=== PATIENT | male | born 1955 | race American Indian/Alaskan Native ===

== ENCOUNTER 2017-06-27 15:30 | Inpatient (IN) | payer MEDICARE ==
[2017-06-27] MEDS ORDERED: ATIVAN IV ONE (15:38)
[2017-06-27] MEDS ORDERED: KEPPRA 1,000 MG/NS 0.75% 100ML 1,000 MG/100 ML BAG IV ONE (15:38)
[2017-06-27 16:09] LABS: Basophils % (Auto) 1.3 % (0.0-1.8); Hematocrit 40.9 % (35.5-45.6); Mean Corpuscular HGB Conc 32 % (32-34); Mean Corpuscular Hemoglobin 28 pg (28-32); Mean Corpuscular Volume 89 fl (84-94); Red Cell Distribution Width 16.7 % (13.2-15.2); White Blood Count 7.5 K/mm3 (4.5-11.0)
[2017-06-27] MEDS ORDERED: CARDIZEM ONE (16:11)
[2017-06-27] MEDS ORDERED: CARDIZEM IV ONE (16:15)
[2017-06-27 16:16] LABS: Platelet Count 237 K/mm3 (140-440)
[2017-06-27] MEDS ORDERED: NACL 0.9% 1000 ML 1,000 ML IV ONE ×2 (16:16→17:24)
--- NOTE | 2017-06-27 16:19 | XRay Report ---
FINAL REPORT EXAM: XR CHEST 1V AP HISTORY: rhonchi s/p multiple seizures TECHNIQUE: AP portable view of the chest PRIORS: None. FINDINGS: Lines, tubes, and devices: N/A Lungs and pleura: Trachea is normal in position. Lungs are clear of infiltrate, pleural effusion, vascular congestion, or pneumothorax. Cardiomediastinal silhouette: Cardiac and mediastinal silhouettes are unremarkable. Other: Bony structures are intact. IMPRESSION: No acute cardiopulmonary process seen.
[2017-06-27 16:24] LABS: Anion Gap 30 mmol/L; BUN/Creatinine Ratio 13; Blood Urea Nitrogen 15 mg/dL (9-20); Carbon Dioxide 18 mmol/L (22-30); Chloride 95.1 mmol/L (98-107); Creatine Kinase 149 units/L (55-170); Glucose 159 mg/dL (75-100); Potassium 3.8 mmol/L (3.6-5.0); Sodium 139 mmol/L (137-145)
--- NOTE | 2017-06-27 17:05 | Cat Scan Report ---
FINAL REPORT EXAM: CT HEAD/BRAIN WO CON HISTORY: multiple seizures. History of CVA right side weakness TECHNIQUE: Standard unenhanced CT of the head at 5.0 millimeter axial increments PRIORS: None. FINDINGS: The ventricular system is normal in size and configuration. There is moderate cerebral atrophy. Low-density remote infarct and encephalomalacia in the left occipital lobe is seen with ballooning of the adjacent atrium and occipital horn of the left lateral ventricle. There is no evidence for mass lesion, mass effect, midline shift, acute intracranial hemorrhage, or acute ischemia/ infarction. Visualized paranasal sinuses demonstrates mucosal thickening in the inferior aspect of both maxillary sinuses and several bilateral ethmoid air cells. Opacification of much of the left mastoid air cells suggests mastoiditis. IMPRESSION: 1. No acute intracranial process noted. 2. Remote left occipital infarct with ballooning of the adjacent left occipital horn and atrium 3. Left mastoiditis. Mild chronic sinusitis of the maxillary and ethmoid air cells
--- NOTE | 2017-06-27 17:28 | Emergency Department Report ---
ED Seizure HPI - General Chief Complaint: Seizure Stated Complaint: SEIZURE Time Seen by Provider: 06/27/17 15:37 Source: patient, old records reviewed Mode of arrival: Stretcher Limitations: Altered Mental Status - History of Present Illness Initial Comments: 62-year-old male with a past medical history seizures, previous CVA with residual right-sided deficits, and hypertension presents to the hospital complains of multiple seizures prior to arrival. Patient had one seizure at home, one in route, and one upon arrival to the ED. EMS unable to obtain an IV in route. Patient received 4 mg of Ativan IM but continued to have a seizure upon arrival. IV placed upon arrival and additional Ativan 2 mg administered and 1 g of Keppra initiated. Patient is alone and without a family member at the bedside and pt unable to provide any history of present illness. History obtained from EMS and previous medical record. - Related Data Home Medications Medication Instructions Recorded Confirmed Last Taken Aspirin [Aspirin TAB] 325 mg PO QDAY 06/19/13 06/19/13 Unknown Carvedilol [Coreg] 12.5 mg PO DAILY 06/19/13 06/19/13 Unknown Clopidogrel [Plavix] 75 mg PO QDAY 06/19/13 06/19/13 Unknown Famotidine [Pepcid] 20 mg PO BID 06/19/13 06/19/13 Unknown Hydrochlorothiazide 12.5 mg PO DAILY 06/19/13 06/19/13 Unknown Isosorbide Mononitrate [Imdur] 120 mg PO QDAY 06/19/13 06/19/13 Unknown Lisinopril [Zestril TAB] 20 mg PO QDAY 06/19/13 06/19/13 Unknown Simvastatin [Zocor TAB] 20 mg PO QHS 06/19/13 06/19/13 Unknown Spironolactone 25 mg PO DAILY 06/19/13 06/19/13 Unknown Verapamil HCl [Calan Sr] 360 mg PO 06/19/13 06/19/13 Unknown amLODIPine [Norvasc] 10 mg PO DAILY 06/19/13 06/19/13 Unknown levETIRAcetam [Keppra TAB] 500 mg PO BID 06/19/13 06/19/13 Unknown Allergies Allergy/AdvReac Type Severity Reaction Status Date / Time No Known Allergies Allergy Unverified 06/19/13 17:40 ED Review of Systems ROS: Stated complaint: SEIZURE Other details as noted in HPI Comment: Unobtainable due to pts medical conditions ED Past Medical Hx - Past Medical History Hx Hypertension: Yes Hx CVA: Yes (right sided defecits) Hx Congestive Heart Failure: No Hx Diabetes: No Hx Seizures: Yes Hx Asthma: No Hx COPD: No - Social History Smoking Status: Unknown if ever smoked Substance Use Type: Methamphetamines - Medications Home Medications: Home Medications Medication Instructions Recorded Confirmed Last Taken Type Aspirin [Aspirin TAB] 325 mg PO QDAY 06/19/13 06/19/13 Unknown History Carvedilol [Coreg] 12.5 mg PO DAILY 06/19/13 06/19/13 Unknown History Clopidogrel [Plavix] 75 mg PO QDAY 06/19/13 06/19/13 Unknown History Famotidine [Pepcid] 20 mg PO BID 06/19/13 06/19/13 Unknown History Hydrochlorothiazide 12.5 mg PO DAILY 06/19/13 06/19/13 Unknown History Isosorbide Mononitrate [Imdur] 120 mg PO QDAY 06/19/13 06/19/13 Unknown History Lisinopril [Zestril TAB] 20 mg PO QDAY 06/19/13 06/19/13 Unknown History Simvastatin [Zocor TAB] 20 mg PO QHS 06/19/13 06/19/13 Unknown History Spironolactone 25 mg PO DAILY 06/19/13 06/19/13 Unknown History Verapamil HCl [Calan Sr] 360 mg PO 06/19/13 06/19/13 Unknown History amLODIPine [Norvasc] 10 mg PO DAILY 06/19/13 06/19/13 Unknown History levETIRAcetam [Keppra TAB] 500 mg PO BID 06/19/13 06/19/13 Unknown History ED Physical Exam - General Limitations: Altered Mental Status - Other Other exam information: General: Unresponsive Head exam: Atraumatic, normocephalic Eyes exam: Pupils equal and reactive to light ENT: Moist mucous membrane Neck exam: Normal inspection Respiratory exam: Bilateral rhonchi/sonorous respirations Cardiovascular: Tachycardic regular rhythm Abdomen: Soft, nondistended, and nontender, with normal bowel sounds, no rebound, or guarding : Enlarged scrotum with partially reducible left inguinal hernia Extremity: Full range of motion normal inspection no deformity Back: Normal Inspection, full range of motion, no tenderness Neurologic: Initially patient presented with generalized, tonic seizure upon arrival lasting about 1 minute. Patient post ictal afterwards with sonorous respirations. Psychiatric: Unresponsive Skin: Warm, dry, intact ED Course Vital Signs 06/27/17 06/27/17 06/27/17 15:42 15:49 16:00 Temperature 97.4 F L Pulse Rate 149 H 147 H Respiratory 24 24 16 Rate Blood Pressure 163/121 155/106 O2 Sat by Pulse 100 98 Oximetry 06/27/17 06/27/17 06/27/17 16:10 16:15 16:30 Temperature Pulse Rate 144 H 135 H 134 H Respiratory 15 19 Rate Blood Pressure 157/113 141/100 163/112 O2 Sat by Pulse 98 97 Oximetry 06/27/17 06/27/17 06/27/17 16:50 17:00 17:30 Temperature Pulse Rate 116 H 121 H 101 H Respiratory 14 14 13 Rate Blood Pressure 162/110 173/109 152/102 O2 Sat by Pulse 98 100 100 Oximetry 06/27/17 18:00 Temperature Pulse Rate 102 H Respiratory 12 Rate Blood Pressure 150/103 O2 Sat by Pulse 100 Oximetry - Reevaluation(s) Reevaluation #1: 06/27/17 17:27 Initial EKG showed a narrow complex tachycardia rate 148 to 150s on a monitor. Differential includes a flutter with 21 block versus sinus tach. Cardizem 10 mg given with improvement in heart rate to 130s. EKG reviewed by cardiology and agrees that it is likely sinus tach. 1 L normal saline ordered. Now heart rate is 107 and is clearly sinus tach on a monitor. Reevaluation #2: 06/27/17 19:25 In the ED nurse attempted to pass Stubbs catheter. Only gross blood was obtained. There appeared to be a clot in the tubing and therefore Stubbs catheter removed. Patient at here have some mild bleeding from the penis with urine output as well. Bleeding stopped. We attempted fully associated with 3 with a 16 [place] catheter in preparation for MRSA strip. I was able to pass a catheter however, karthikeyan blood obtained now is unsure of Stubbs catheter positioned therefore catheter removed. Nurse instructed to place Blencoe catheter and patient may need inpatient urology evaluation Reevaluation #3: 06/27/17 19:48 Patient does have spontaneous movement of all extremities and appears to be stronger on the left. Patient does localize pain. - Consultations Consultation #1: 06/27/17 16:[address] 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 Was able to review EKG pre-and post Cardizem and agrees that second EKG appears to be sinus tachycardia. Recommends Lopressor for blood pressure heart rate control is needed. ED Medical Decision Making - Lab Data Result diagrams: 06/27/17 15:52 06/27/17 15:52 Lab Results 06/27/17 06/27/17 06/27/17 Range/Units 15:44 15:52 15:52 WBC 7.5 (4.5-11.0) K/mm3 RBC 4.60 (3.65-5.03) M/mm3 Hgb 13.0 (11.8-15.2) gm/dl Hct 40.9 (35.5-45.6) % MCV 89 (84-94) fl MCH 28 (28-32) pg MCHC 32 (32-34) % RDW 16.7 H (13.2-15.2) % Plt Count 237 (140-440) K/mm3 Lymph % (Auto) 39.0 H (13.4-35.0) % [place] % (Auto) 9.1 H (0.0-7.3) % Eos % (Auto) 2.0 (0.0-4.3) % Baso % (Auto) 1.3 (0.0-1.8) % Lymph # 2.9 (1.2-5.4) K/mm3 [place] # 0.7 (0.0-0.8) K/mm3 Eos # 0.1 (0.0-0.4) K/mm3 Baso # 0.1 (0.0-0.1) K/mm3 Seg Neutrophils % 48.6 (40.0-70.0) % Seg Neutrophils # 3.6 (1.8-7.7) K/mm3 VBG pH (7.320-7.420) Sodium 139 (137-145) mmol/L Potassium 3.8 (3.6-5.0) mmol/L Chloride 95.1 L (98-107) mmol/L Carbon Dioxide 18 L (22-30) mmol/L Anion Gap 30 mmol/L BUN 15 (9-20) mg/dL Creatinine 1.2 (0.8-1.5) mg/dL Estimated GFR > 60 ml/min BUN/Creatinine Ratio 13 % Glucose 159 H (75-100) mg/dL POC Glucose 179 H (70-105) Lactic Acid (0.7-2.0) mmol/L Calcium 9.0 (8.4-10.2) mg/dL Magnesium 2.20 (1.7-2.3) mg/dL Total Creatine Kinase 149 (55-170) units/L Plasma/Serum Alcohol (0-0.07) gm% 06/27/17 06/27/17 06/27/17 Range/Units 15:52 15:52 16:30 WBC (4.5-11.0) K/mm3 RBC (3.65-5.03) M/mm3 Hgb (11.8-15.2) gm/dl Hct (35.5-45.6) % MCV (84-94) fl MCH (28-32) pg MCHC (32-34) % RDW (13.2-15.2) % Plt Count (140-440) K/mm3 Lymph % (Auto) (13.4-35.0) % [place] % (Auto) (0.0-7.3) % Eos % (Auto) (0.0-4.3) % Baso % (Auto) (0.0-1.8) % Lymph # (1.2-5.4) K/mm3 [place] # (0.0-0.8) K/mm3 Eos # (0.0-0.4) K/mm3 Baso # (0.0-0.1) K/mm3 Seg Neutrophils % (40.0-70.0) % Seg Neutrophils # (1.8-7.7) K/mm3 VBG pH 7.103 L* (7.320-7.420) Sodium (137-145) mmol/L Potassium (3.6-5.0) mmol/L Chloride (98-107) mmol/L Carbon Dioxide (22-30) mmol/L Anion Gap mmol/L BUN (9-20) mg/dL Creatinine (0.8-1.5) mg/dL Estimated GFR ml/min BUN/Creatinine Ratio % Glucose (75-100) mg/dL POC Glucose (70-105) Lactic Acid 12.60 H* (0.7-2.0) mmol/L Calcium (8.4-10.2) mg/dL Magnesium (1.7-2.3) mg/dL Total Creatine Kinase (55-170) units/L Plasma/Serum Alcohol < 0.01 (0-0.07) gm% - EKG Data -: EKG Interpreted by Me (possible anterior infarct) EKG shows normal: sinus rhythm, axis (75), QRS complexes (104), ST-T waves (lvh , lat t inv, inf t wave) Rate: tachycardia (148) - EKG Data When compared to previous EKG there are: no significant change (compared to previous) 06/27/17 19:42 Repeat EKG after Cardizem 10 mg sinus tach 134, inferior lateral T-wave inversions, possible anterior infarct - Radiology Data Radiology results: report reviewed Read by radiologist called CT head: No acute process. Remotely possible infarct with ballooning of the adjacent left occipital horn and atrium. Left mastoiditis. Mild chronic sinusitis of the maxillary and ethmoid sinus cells Chest x-ray: No acute process - Medical Decision Making Patient remains post ictal after several hours in the ED although does localize to pain. Patient occurs admission for further treatment since alteration in mental status persist. Patient received Ativan, Keppra, and IV fluids in the ED. Urology consultation and may be beneficial for hematuria status post Stubbs attempts. Patient has a large left inguinal hernia that appeared to be at least partially reducible upon arrival. Lactic acidosis is likely secondary to multiple seizures and shows improvement and lactic acid and venous pH with repeat blood draw. Sepsis is not suspected. - Differential Diagnosis hypertensive emergency, ICH, mass, seizures, stroke, electrolyte anl, aflut Critical Care Time: No Critical care attestation.: If time is entered above; I have spent that time in minutes in the direct care of this critically ill patient, excluding procedure time. ED Disposition Clinical Impression: Recurrent seizures, Lactic acid acidosis, Post-ictal state, Sinus tachycardia, HTN (hypertension), History of CVA with residual deficit, Hx of seizure disorder , Left inguinal hernia, Hematuria Disposition: OP ADMIT IP TO THIS HOSP Is pt being admited?: Yes Condition: Stable Time of Disposition: 17:34 (Dr Westbrook/hosp)
[2017-06-27] MEDS ORDERED: NACL 0.9% IR SCH (18:00)
[2017-06-27 18:46] LABS: INR 1.06 (0.87-1.13); Partial Thromboplastin Time 31.5 Sec. (24.2-36.6)
--- NOTE | 2017-06-27 22:30 | Emergency Department Report ---
Blank Doc - Documentation Documentation: I was asked by the nurse to evaluate Mr Savage, the patient presented to the hospital for seizure management, patient started to have active bleeding after an attempt to insert a Stubbs catheter associated with scrotal swelling. Patient still obtund due to sedation. On exam patient scrotum swollen and there is active blood from his meatus. Decision is made to transfer patient to a facility where there is a urologist available. I talked to Dr. Sandoval at [facility] and she advised to transfer patient to [facility] emergency room.
--- NOTE | 2017-06-27 22:51 | Cat Scan Report ---
FINAL REPORT EXAM: CT ABDOMEN PELVIS W CON HISTORY: hematuria TECHNIQUE: Standard enhanced CT of the abdomen and pelvis. Delayed imaging through the kidneys and bladder was obtained. Coronal and sagittal reconstruction was also performed. Contrast: 100 mL Omnipaque 300 given IV. PRIORS: None. FINDINGS: There is a huge left inguinal hernia containing numerous loops of small bowel and mesenteric vessels. This hernia extends into the left scrotal sac. No definite evidence for bowel obstruction is seen. No evidence for incarcerated or ischemic bowel is present. Within the abdomen, the liver, spleen, pancreas, gallbladder, adrenal glands, and kidneys are unremarkable. No evidence for retroperitoneal or pelvic lymphadenopathy is seen. The small bowel loops have normal caliber. No soft tissue mass, fluid collection, inflammatory change, or free air is seen within the abdomen or pelvis. The appendix is normal. Within the pelvis, the bladder is unremarkable. The prostate is normal. No evidence for mass or lymphadenopathy is seen in the pelvis. Images through the upper abdomen include the lung bases which demonstrates linear atelectasis in each lung base. Bony structures show sclerotic changes throughout the right ilium and the L4 vertebral body. Bilateral spondylolysis at L5 is present. Moderate to severe disc space narrowing L5-S1 is present. IMPRESSION: 1. no acute intra-abdominal process noted. 2. Large left inguinal hernia extending into the left scrotal sac. This contains numerous loops of small bowel and mesenteric vessels but no evidence for bowel obstruction or ischemia is noted. 3. Sclerotic changes in the right ilium and L4 vertebral body. These findings may be due to Paget's disease.
[2017-06-28 08:48] VITALS: BP 167/107
== END 2017-06-29 07:14 | disposition home or self-care (01) | DRG 699 ==
LOC: ED 15:30 → 3A 18:58
PROVIDERS: ADMIT Internal Medicine; ATTEND Internal Medicine
DX: T83.83XA Hemorrhage due to genitourinary prosthetic devices, implants and grafts, initial encounter (principal); G40.919 Epilepsy, unspecified, intractable, without status epilepticus; E87.2 Acidosis; I69.351 Hemiplegia and hemiparesis following cerebral infarction affecting right dominant side; R00.0 Tachycardia, unspecified; K40.90 Unilateral inguinal hernia, without obstruction or gangrene, not specified as recurrent; Z86.69 Personal history of other diseases of the nervous system and sense organs; Z60.2 Problems related to living alone; Z79.899 Other long term (current) drug therapy; Z79.82 Long term (current) use of aspirin; Y65.8 Other specified misadventures during surgical and medical care; Z79.01 Long term (current) use of anticoagulants; Y92.89 Other specified places as the place of occurrence of the external cause
CPT/HCPCS: 36415; 51702; 70450; 71010; 74177; 80048; 80320; 82140; 82550; 82805; 82962; 83735; 85025; 85610; 85730; 93005; 93010; 96361; 96365; 96375; A4217; G0480; J7030; Q9967

== ENCOUNTER 2018-03-28 03:20 | Emergency (ER) | payer MEDICARE ==
[2018-03-28] MEDS ORDERED: NACL 0.9% 1000 ML 1,000 ML IV ONE (03:59)
[2018-03-28] MEDS ORDERED: KEPPRA 1,000 MG/NS 0.75% 100ML 1,000 MG/100 ML BAG IV ONE ×2 (04:00→06:27)
[2018-03-28 04:21] LABS: Basophils % (Auto) 0.7 % (0.0-1.8); Eosinophils # (Auto) 0.1 K/mm3 (0.0-0.4); Hematocrit 38.2 % (35.5-45.6); Hemoglobin 12.3 gm/dl (11.8-15.2); Lymphocytes # (Auto) 1.3 K/mm3 (1.2-5.4); Lymphocytes % (Auto) 20.2 % (13.4-35.0); Mean Corpuscular HGB Conc 32 % (32-34); Mean Corpuscular Hemoglobin 29 pg (28-32); Mean Corpuscular Volume 91 fl (84-94); Monocytes # (Auto) 0.5 K/mm3 (0.0-0.8); Monocytes % (Auto) 8.3 % (0.0-7.3); Platelet Count 165 K/mm3 (140-440); Red Blood Count 4.21 M/mm3 (3.65-5.03); Red Cell Distribution Width 16.1 % (13.2-15.2)
--- NOTE | 2018-03-28 04:53 | Cat Scan Report ---
FINAL REPORT PROCEDURE: CT HEAD/BRAIN WO CON TECHNIQUE: Computerized tomography of the head was performed without contrast material. HISTORY: ams COMPARISON: 06/27/2017 FINDINGS: Skull and scalp: Normal. Paranasal sinuses: Normal. Ventricles and subarachnoid spaces: There is ex vacuo dilatation of the occipital horn of the left lateral ventricle.. Cerebrum: There encephalomalacia in the medial left occipital lobe.. There is no acute infarct, hemorrhage, mass, mass effect or midline shift. Cerebellum and brainstem: No evidence of hemorrhage, acute infarction or mass. Vasculature: Normal. Comments: None. IMPRESSION: There is evidence of an old left occipital infarct. There is no acute abnormality.
[2018-03-28 05:16] LABS: Albumin 3.8 g/dL (3.9-5); Calcium 8.7 mg/dL (8.4-10.2)
--- NOTE | 2018-03-28 06:16 | Emergency Department Report ---
<KARLA ACEVEDO - Last Filed: 03/28/18 06:12> ED General Adult HPI - General Chief complaint: Altered Mental Status Stated complaint: AMS/MH EVAL Time Seen by Provider: 03/28/18 03:55 Source: EMS Mode of arrival: Stretcher Limitations: Altered Mental Status - History of Present Illness Initial comments: Patient is a 63-year-old -[place] male who is presenting with altered mental status. EMS was unable to give good history of who called 911. Patient does have a history of seizures but does not remember why he is in the hospital at this time. Patient states he he feels fine. Patient has no complaints. Patient denies any injury or pain. Patient is alert and oriented 2 states he normally doesn't know the date Associated Symptoms: confusion, seizure (believes he may have had a seizure. Patient lives with his sister several other family members who are not here at this time). denies: chest pain, cough, diaphoresis, fever/chills, headaches, loss of appetite, malaise, nausea/vomiting, rash, shortness of breath, syncope - Related Data Home Medications Medication Instructions Recorded Confirmed Last Taken Aspirin [Aspirin TAB] 325 mg PO QDAY 06/19/13 06/19/13 Unknown Carvedilol [Coreg] 12.5 mg PO DAILY 06/19/13 06/19/13 Unknown Clopidogrel [Plavix] 75 mg PO QDAY 06/19/13 06/19/13 Unknown Famotidine [Pepcid] 20 mg PO BID 06/19/13 06/19/13 Unknown Hydrochlorothiazide 12.5 mg PO DAILY 06/19/13 06/19/13 Unknown Isosorbide Mononitrate [Imdur] 120 mg PO QDAY 06/19/13 06/19/13 Unknown Lisinopril [Zestril TAB] 20 mg PO QDAY 06/19/13 06/19/13 Unknown Simvastatin [Zocor TAB] 20 mg PO QHS 06/19/13 06/19/13 Unknown Spironolactone 25 mg PO DAILY 06/19/13 06/19/13 Unknown Verapamil HCl [Calan Sr] 360 mg PO 06/19/13 06/19/13 Unknown amLODIPine [Norvasc] 10 mg PO DAILY 06/19/13 06/19/13 Unknown Previous Rx's Medication Instructions Recorded Last Taken Type levETIRAcetam [Keppra TAB] 500 mg PO BID #60 tablet 03/28/18 Unknown Rx Allergies Allergy/AdvReac Type Severity Reaction Status Date / Time No Known Allergies Allergy Unverified 06/19/13 17:40 ED Review of Systems ROS: Stated complaint: AMS/MH EVAL Other details as noted in HPI Comment: All other systems reviewed and negative ED Past Medical Hx - Past Medical History Previous Medical History?: Yes Hx Hypertension: Yes Hx CVA: Yes (right sided defecits) Hx Congestive Heart Failure: No Hx Diabetes: No Hx Seizures: Yes Hx Asthma: No Hx COPD: No - Social History Smoking Status: Smoker, Current Status Unknown Substance Use Type: None - Medications Home Medications: Home Medications Medication Instructions Recorded Confirmed Last Taken Type Aspirin [Aspirin TAB] 325 mg PO QDAY 06/19/13 06/19/13 Unknown History Carvedilol [Coreg] 12.5 mg PO DAILY 06/19/13 06/19/13 Unknown History Clopidogrel [Plavix] 75 mg PO QDAY 06/19/13 06/19/13 Unknown History Famotidine [Pepcid] 20 mg PO BID 06/19/13 06/19/13 Unknown History Hydrochlorothiazide 12.5 mg PO DAILY 06/19/13 06/19/13 Unknown History Isosorbide Mononitrate [Imdur] 120 mg PO QDAY 06/19/13 06/19/13 Unknown History Lisinopril [Zestril TAB] 20 mg PO QDAY 06/19/13 06/19/13 Unknown History Simvastatin [Zocor TAB] 20 mg PO QHS 06/19/13 06/19/13 Unknown History Spironolactone 25 mg PO DAILY 06/19/13 06/19/13 Unknown History Verapamil HCl [Calan Sr] 360 mg PO 06/19/13 06/19/13 Unknown History amLODIPine [Norvasc] 10 mg PO DAILY 06/19/13 06/19/13 Unknown History levETIRAcetam [Keppra TAB] 500 mg PO BID #60 tablet 03/28/18 Unknown Rx ED Physical Exam - General Limitations: Altered Mental Status General appearance: alert, in no apparent distress - Head Head exam: Present: atraumatic, normocephalic - Eye Eye exam: Present: normal appearance - ENT ENT exam: Present: mucous membranes moist - Neck Neck exam: Present: normal inspection - Respiratory Respiratory exam: Present: normal lung sounds bilaterally. Absent: respiratory distress, wheezes, rales, rhonchi - Cardiovascular Cardiovascular Exam: Present: regular rate, normal rhythm. Absent: systolic murmur, diastolic murmur, rubs, gallop - GI/Abdominal GI/Abdominal exam: Present: soft, normal bowel sounds. Absent: distended, tenderness, guarding - Rectal Rectal exam: Present: deferred - Extremities Exam Extremities exam: Present: normal inspection - Back Exam Back exam: Present: normal inspection - Neurological Exam Neurological exam: Present: alert, oriented X3 - Psychiatric Psychiatric exam: Present: normal affect, normal mood - Skin Skin exam: Present: warm, dry, intact, normal color. Absent: rash ED Course Vital Signs 03/28/18 03/28/18 03/28/18 03:29 03:30 03:34 Temperature Pulse Rate 118 H 118 H 116 H Respiratory 18 Rate Blood Pressure Blood Pressure 123/81 [Left] O2 Sat by Pulse 97 99 Oximetry 03/28/18 03/28/18 03/28/18 03:45 06:42 07:00 Temperature 97.9 F Pulse Rate 116 H 69 82 Respiratory 17 16 16 Rate Blood Pressure 127/84 161/107 Blood Pressure 135/99 [Left] O2 Sat by Pulse 97 100 Oximetry 03/28/18 07:31 Temperature Pulse Rate 77 Respiratory 12 Rate Blood Pressure 181/104 Blood Pressure [Left] O2 Sat by Pulse 95 Oximetry ED Medical Decision Making - Lab Data Result diagrams: 03/28/18 04:12 03/28/18 04:12 - Medical Decision Making His CT head is within normal limits according to radiology report. Patient's is still pending a urinalysis. It was a delay with his urinalysis be collected secondary to a CODE BLUE with another patient. Patient's potassium slightly elevated but the patient does have normal renal function suspect this may be an error. Patient will have a repeat potassium performed. Patient was signed out to one of my colleagues for a follow-up on these 2 studies Critical care attestation.: If time is entered above; I have spent that time in minutes in the direct care of this critically ill patient, excluding procedure time. ED Disposition Clinical Impression: Hx of seizure disorder Disposition: DC- TO HOME OR SELFCARE Condition: Stable Additional Instructions: Do not drive or operate motor vehicles for the next 6 months. Follow up with the primary care doctor or neurology specialist within the next 7-14 days. Return to the ER right away with fevers, chills, lethargy, irritability, projectile vomiting, change in mental status, confusion, inability to tolerate liquid feeds. Prescriptions: levETIRAcetam [Keppra TAB] 500 mg PO BID #60 tablet Referrals: MAYELIN KRAUS MD [Referring] - 3-5 Days CA URIOSTEGUI MD [Staff Physician] - 3-5 Days MARCO A VALERIO MD [Staff Physician] - 3-5 Days <WESLEY FREEMAN - Last Filed: 03/28/18 09:33> ED Course - Reevaluation(s) Reevaluation #1: 03/28/18 09:31 Patient's tachycardia has resolved. His potassium is appropriate and a repeat basic metabolic panel demonstrates improvement and anion gap. Patient has a documented history of seizures. Patient most likely had a seizure. The patient has been observed in the ER for 6 hours without recurrent convulsive event. On numerous repeat examination she is resting comfortably in a stretcher , and in no distress. He is alert to name, and knows that he is not Hospital. He does not currently know the month or year. He is able to give his sister's name but doesn't recall her phone number. He indicates that he lives with her. Patient should not drive, and he should follow up with the primary care doctor or neurologist within the next 2 weeks. He is medically suitable for discharge at this time. ED Medical Decision Making - Lab Data Result diagrams: 03/28/18 04:12 03/28/18 05:32 ED Disposition Is pt being admited?: No Does the pt Need Aspirin: No
[2018-03-28 06:54] LABS: BUN/Creatinine Ratio 12; Blood Urea Nitrogen 15 mg/dL (9-20); Calcium 8.9 mg/dL (8.4-10.2); Hemolysis Index 8
[2018-03-28 08:42] LABS: Bilirubin,Urine NEG (Negative); Blood,Urine NEG (Negative); Color,Urine Yellow (Yellow); Mucus,Urine FEW /HPF
[2018-03-29 05:23] VITALS: BP 172/92
== END 2018-03-29 09:47 | disposition home or self-care (01) ==
LOC: ED 03:20
DX: G40.909 Epilepsy, unspecified, not intractable, without status epilepticus (principal); Z79.82 Long term (current) use of aspirin; I10 Essential (primary) hypertension; F17.200 Nicotine dependence, unspecified, uncomplicated
CPT/HCPCS: 36415; 51701; 70450; 80048; 80053; 81001; 84132; 85025; 96365; 96366; 99285; J1953; J7030

== ENCOUNTER 2018-09-05 17:21 | Inpatient (IN) | payer MEDICARE ==
[2018-09-05] MEDS ORDERED: NACL 0.9% 1000 ML 2,000 ML ONE (18:28)
[2018-09-05] MEDS ORDERED: KEPPRA 1,000 MG in NACL 0.9% 100 ML IV ONE (18:34)
[2018-09-05] MEDS ORDERED: NACL 0.9% 1000 ML 1,000 ML IV ONE ×2 (18:34)
[2018-09-05] MEDS ORDERED: KEPPRA 1,000 MG/NS 0.75% 100ML 1,000 MG/100 ML BAG IV ONE (18:44)
--- NOTE | 2018-09-05 18:57 | Emergency Department Report ---
ED Seizure HPI - General Chief Complaint: Seizure Stated Complaint: SEIZURE Time Seen by Provider: 09/05/18 18:31 Source: EMS Mode of arrival: Stretcher Limitations: Other - History of Present Illness Initial Comments: 63-year-old male with history of CVA, seizures presents to ED via EMS following seizure activity at home. The patient was given Ativan 2 mg by EMS. Patient is currently postictal. MD Complaint: seizure -: This evening Seizure History: known seizure disorder Place: home Treatments Prior to Arrival: benzodiazepines (Ativan 2 mg) - Related Data Home Medications Medication Instructions Recorded Confirmed Last Taken Aspirin [Aspirin TAB] 325 mg PO QDAY 06/19/13 06/19/13 Unknown Carvedilol [Coreg] 12.5 mg PO DAILY 06/19/13 06/19/13 Unknown Clopidogrel [Plavix] 75 mg PO QDAY 06/19/13 06/19/13 Unknown Famotidine [Pepcid] 20 mg PO BID 06/19/13 06/19/13 Unknown Hydrochlorothiazide 12.5 mg PO DAILY 06/19/13 06/19/13 Unknown Isosorbide Mononitrate [Imdur] 120 mg PO QDAY 06/19/13 06/19/13 Unknown Lisinopril [Zestril TAB] 20 mg PO QDAY 06/19/13 06/19/13 Unknown Simvastatin (Nf) [Zocor TAB] 20 mg PO QHS 06/19/13 06/19/13 Unknown Spironolactone 25 mg PO DAILY 06/19/13 06/19/13 Unknown Verapamil HCl [Calan Sr] 360 mg PO 06/19/13 06/19/13 Unknown amLODIPine [Norvasc] 10 mg PO DAILY 06/19/13 06/19/13 Unknown Previous Rx's Medication Instructions Recorded Last Taken Type levETIRAcetam [Keppra TAB] 500 mg PO BID #60 tablet 03/28/18 Unknown Rx Allergies Allergy/AdvReac Type Severity Reaction Status Date / Time No Known Allergies Allergy Unverified 06/19/13 17:40 ED Review of Systems ROS: Stated complaint: SEIZURE Other details as noted in HPI Comment: Unobtainable due to pts medical conditions (altered mental status; post-ictal) ED Past Medical Hx - Past Medical History Hx Hypertension: Yes Hx CVA: Yes (right sided defecits) Hx Congestive Heart Failure: No Hx Diabetes: No Hx Seizures: Yes Hx Asthma: No Hx COPD: No - Social History Smoking Status: Smoker, Current Status Unknown Substance Use Type: None - Medications Home Medications: Home Medications Medication Instructions Recorded Confirmed Last Taken Type Aspirin [Aspirin TAB] 325 mg PO QDAY 06/19/13 06/19/13 Unknown History Carvedilol [Coreg] 12.5 mg PO DAILY 06/19/13 06/19/13 Unknown History Clopidogrel [Plavix] 75 mg PO QDAY 06/19/13 06/19/13 Unknown History Famotidine [Pepcid] 20 mg PO BID 06/19/13 06/19/13 Unknown History Hydrochlorothiazide 12.5 mg PO DAILY 06/19/13 06/19/13 Unknown History Isosorbide Mononitrate [Imdur] 120 mg PO QDAY 06/19/13 06/19/13 Unknown History Lisinopril [Zestril TAB] 20 mg PO QDAY 06/19/13 06/19/13 Unknown History Simvastatin (Nf) [Zocor TAB] 20 mg PO QHS 06/19/13 06/19/13 Unknown History Spironolactone 25 mg PO DAILY 06/19/13 06/19/13 Unknown History Verapamil HCl [Calan Sr] 360 mg PO 06/19/13 06/19/13 Unknown History amLODIPine [Norvasc] 10 mg PO DAILY 06/19/13 06/19/13 Unknown History levETIRAcetam [Keppra TAB] 500 mg PO BID #60 tablet 03/28/18 Unknown Rx ED Physical Exam - General Limitations: Other General appearance: lethargic - Head Head exam: Present: atraumatic, normocephalic - Eye Eye exam: Present: normal appearance, PERRL - ENT ENT exam: Present: mucous membranes moist - Neck Neck exam: Present: normal inspection - Respiratory Respiratory exam: Present: normal lung sounds bilaterally. Absent: respiratory distress - Cardiovascular Cardiovascular Exam: Present: normal rhythm, tachycardia - GI/Abdominal GI/Abdominal exam: Present: soft. Absent: distended - exam: Present: other (large inguinal hernia present) - Extremities Exam Extremities exam: Present: normal inspection - Neurological Exam Neurological exam: Present: other (obtunded) - Skin Skin exam: Present: warm, dry, intact, normal color ED Course Vital Signs 02/17/19 02/17/19 02/17/19 18:15 19:00 19:15 Temperature 97.7 F Pulse Rate 92 H 93 H 92 H Respiratory 15 16 15 Rate Blood Pressure 89/50 110/77 Blood Pressure 110/77 [Left] O2 Sat by Pulse 100 100 100 Oximetry 09/05/18 09/05/18 09/05/18 19:30 19:33 19:35 Temperature 96.8 F L Pulse Rate 98 H 101 H Respiratory 15 14 14 Rate Blood Pressure 139/83 Blood Pressure 136/87 [Left] O2 Sat by Pulse 100 100 100 Oximetry 09/05/18 09/05/18 09/05/18 20:00 20:15 20:30 Temperature Pulse Rate 100 H 98 H 99 H Respiratory 18 19 20 Rate Blood Pressure 124/86 123/90 138/93 Blood Pressure [Left] O2 Sat by Pulse 95 92 97 Oximetry 09/05/18 09/05/18 09/05/18 21:01 21:30 21:45 Temperature Pulse Rate 91 H 90 89 Respiratory 18 14 18 Rate Blood Pressure 133/93 133/85 118/77 Blood Pressure [Left] O2 Sat by Pulse 100 99 99 Oximetry 09/05/18 09/05/18 09/05/18 22:00 22:15 22:30 Temperature Pulse Rate 90 88 90 Respiratory 17 16 13 Rate Blood Pressure 118/75 137/84 142/88 Blood Pressure [Left] O2 Sat by Pulse 91 100 97 Oximetry 09/05/18 09/05/18 09/06/18 22:45 23:15 00:37 Temperature 99.6 F Pulse Rate 93 H 89 Respiratory 16 14 Rate Blood Pressure 137/86 155/101 Blood Pressure 152/95 [Left] O2 Sat by Pulse 98 94 99 Oximetry - Reevaluation(s) Reevaluation #1: 09/05/18 21:47 Patient remains lethargic. Withdraws from painful stimuli. Vitals improved. Will continue to observe for improvement of mental status. Keppra given. CT Head negative. Reevaluation #2: 09/05/18 22:35 Dr Singh, hospitalist, requests scrotal US for evaluation of hernia before he is admitted. Inguinal hernia documented in past charts. Unsure if there has been a change in size as pt remains altered and no family at bedside. EMS did report that family stated pt had a "cyst" in his testicles. ED Medical Decision Making - Lab Data Result diagrams: 09/05/18 18:43 09/05/18 18:43 - EKG Data -: EKG Interpreted by Me EKG shows normal: sinus rhythm, axis Rate: tachycardia (rate 112) - EKG Data Interpretation: LVH, other (t wave inv inferolateral leads,ST depressionV3-5) - Radiology Data Radiology results: report reviewed, image reviewed CXR: Early bilateral infiltrates in the right middle lobe and left lung base CT Head: No acute intracranial process noted. No change. Remote infarct in the medial left occipital lobe. *technical issues involving report not crossing over into [facility]; reports received via fax - Medical Decision Making 63-year-old male with history of seizures who presents to ED following seizures at home. Unknown how many seizures patient had as there has been no family here in the ED the patient. The patient did receive Ativan 2 mg from EMS. Patient was initially hypotensive on arrival, however her BP responded with IV fluid bolus. The patient was loaded with [address] was obtained which was negative. Chest x-ray shows bilateral infiltrates. O2 sat of 91% on room air, requiring 2 L O2 via nasal cannula to keep him at 100%. Patient afebrile, and WBCs normal. The cultures were obtained and one dose of Levaquin was given. Patient has prolonged postictal state, as he is still not fully awakened yet. Patient does withdraw to painful stimuli. Will admit to [facility], Dr Singh. - Differential Diagnosis med noncompliance, infection, electrolyte abnormality Critical care attestation.: If time is entered above; I have spent that time in minutes in the direct care of this critically ill patient, excluding procedure time. ED Disposition Clinical Impression: Seizure, Post-ictal state, Pneumonia Disposition: OP ADMIT IP TO THIS HOSP Is pt being admited?: Yes Condition: Stable Instructions: Bacterial Pneumonia (ED) Referrals: LASHAE GUSTAFSON [Primary Care Provider] - 3-5 Days Time of Disposition: 22:15
[2018-09-05 19:02] LABS: Basophils % (Auto) 0.5 % (0.0-1.8); Eosinophils % (Auto) 0.4 % (0.0-4.3); Hematocrit 36.2 % (35.5-45.6); Hemoglobin 11.8 gm/dl (11.8-15.2); Lymphocytes # (Auto) 0.9 K/mm3 (1.2-5.4); Lymphocytes % (Auto) 14.5 % (13.4-35.0); Mean Corpuscular HGB Conc 33 % (32-34); Mean Corpuscular Volume 91 fl (84-94); Monocytes # (Auto) 0.4 K/mm3 (0.0-0.8); Monocytes % (Auto) 6.5 % (0.0-7.3); Platelet Count 181 K/mm3 (140-440); Red Blood Count 4.01 M/mm3 (3.65-5.03); Red Cell Distribution Width 15.2 % (13.2-15.2)
[2018-09-05 19:05] LABS: INR 1.16 (0.87-1.13)
[2018-09-05 19:06] LABS: Partial Thromboplastin Time 25.7 Sec. (24.2-36.6)
[2018-09-05 19:13] LABS: Alanine Aminotransferase 15 units/L (7-56); Albumin 3.5 g/dL (3.9-5); BUN/Creatinine Ratio 10; Blood Urea Nitrogen 15 mg/dL (9-20); Calcium 8.8 mg/dL (8.4-10.2); Hemolysis Index 10
[2018-09-05 19:24] LABS: Bilirubin,Direct < 0.2 mg/dL (0-0.2)
[2018-09-05 20:08] LABS: Amphetamine Screen,Urine PRESUMPTIVE NEGATIVE; Benzodiazepines Screen,Urine PRESUMPTIVE NEGATIVE; Cannabinoid Screen,Urine PRESUMPTIVE NEGATIVE; Cocaine Screen,Urine PRESUMPTIVE NEGATIVE; Methadone Screen,Urine PRESUMPTIVE NEGATIVE; Opiate Screen,Urine PRESUMPTIVE NEGATIVE
[2018-09-05 20:17] LABS: Bacteria,Urine 1+ /HPF (Negative); Bilirubin,Urine NEG (Negative); Blood,Urine NEG (Negative); Color,Urine Yellow (Yellow); Mucus,Urine FEW /HPF; Urobilinogen,Urine < 2.0 mg/dL (<2.0)
[2018-09-05] MEDS ORDERED: LEVAQUIN 750MG/150ML 750 MG/150 ML BAG IV ONE (22:07)
--- NOTE | 2018-09-06 00:43 | Ultrasound Report ---
FINAL REPORT PROCEDURE: US TESTICULAR DOPPLER COMP TECHNIQUE: Real-time oglesby-scale and color flow Doppler sonography in multiple planes of the scrotum, testicles, and epididymes was performed. Velocity spectral waveform analysis Doppler imaging of the arterial inflow and venous outflow of the testicles was performed with image documentation. CPT 49008 and 49738 HISTORY: swelling scrotum COMPARISON: CT abdomen and pelvis 06/27/2017 FINDINGS: RIGHT TESTICLE: Size: 5.2 x 2.1 x 2.6 cm . Appearance: Normal size and echotexture . Arterial blood flow: Normal spectral waveforms, flow velocities and color flow images.. Venous blood flow: Normal spectral waveforms and color flow images. Right epididymis: Normal size and echotexture . Hydrocele: None . LEFT TESTICLE Size: 4.7 x 1.8 x 3.8 cm . Appearance: Normal size and echotexture . Arterial blood flow: Normal spectral waveforms, flow velocities and color flow images.. Venous blood flow: Normal spectral waveforms and color flow images. Leftepididymis: A left epididymal head cyst measures 5 x 4 millimeters.. Hydrocele: None. There is a large amount of bowel identified within the left side scrotal sac consistent with a large left inguinal hernia which was identified on prior CT scanning. IMPRESSION: Both testicles have a normal size with appropriate blood flow. There is a large amount of bowel identified within the left side scrotal sac consistent with a large left inguinal hernia which was identified on prior CT scanning. A left epididymal head cyst measures 5 x 4 millimeters.
[2018-09-06] MEDS ORDERED: ZOFRAN IV PRN (01:01)
[2018-09-06] MEDS ORDERED: SODIUM CHLORIDE FLUSH SYRINGE 10 ML IV PRN (01:01)
[2018-09-06] MEDS ORDERED: ATIVAN IV PRN (01:01)
[2018-09-06] MEDS ORDERED: TYLENOL PO PRN (01:01)
--- NOTE | 2018-09-06 01:37 | History and Physical Report ---
History of Present Illness Date of examination: 09/06/18 History of present illness: This is a 63-year-old man with history of seizure, hypertension,coronary artery diseas, CVA was brought to the emergency room because he had a seizure at home, s/p ativan. The patient is now sedated . Review of Systems unobtainable. No family is available PAST MEDICAL HISTORY:seizure, hypertension,coronary artery diseas, CVA PAST SURGICAL HISTORY: Unknown SOCIAL HISTORY: Unknown FAMILY HISTORY: Hypertension Medications and Allergies Allergies Allergy/AdvReac Type Severity Reaction Status Date / Time No Known Allergies Allergy Unverified 06/19/13 17:40 Home Medications Medication Instructions Recorded Confirmed Last Taken Type Aspirin [Aspirin TAB] 325 mg PO QDAY 06/19/13 09/06/18 Unknown History Carvedilol [Coreg] 12.5 mg PO DAILY 06/19/13 09/06/18 Unknown History Clopidogrel [Plavix] 75 mg PO QDAY 06/19/13 09/06/18 Unknown History Famotidine [Pepcid] 20 mg PO BID 06/19/13 09/06/18 Unknown History Hydrochlorothiazide 12.5 mg PO DAILY 06/19/13 09/06/18 Unknown History Isosorbide Mononitrate [Imdur] 120 mg PO QDAY 06/19/13 09/06/18 Unknown History Lisinopril [Zestril TAB] 20 mg PO QDAY 06/19/13 09/06/18 Unknown History Simvastatin (Nf) [Zocor TAB] 20 mg PO QHS 06/19/13 09/06/18 Unknown History Spironolactone 25 mg PO DAILY 06/19/13 09/06/18 Unknown History Verapamil HCl [Calan Sr] 360 mg PO QDAY 06/19/13 09/06/18 Unknown History amLODIPine [Norvasc] 10 mg PO DAILY 06/19/13 09/06/18 Unknown History levETIRAcetam [Keppra TAB] 500 mg PO BID #60 tablet 03/28/18 09/06/18 Unknown Rx Active Meds: Active Medications Acetaminophen (Tylenol) 650 mg PO Q4H PRN PRN Reason: Pain MILD(1-3)/Fever >100.5/BENTLEY Enoxaparin Sodium (Lovenox) 40 mg SUB-Q QDAY@1000 AILEEN Piperacillin Sod/Tazobactam Sod (Zosyn/Ns 4.5gm/100ml) 4.5 gm in 100 mls @ 200 mls/hr IV Q8H AILEEN; Protocol Lorazepam (Ativan) 1 mg IV Q4H PRN PRN Reason: Seizures Ondansetron HCl (Zofran) 4 mg IV Q4H PRN PRN Reason: Nausea And Vomiting Sodium Chloride (Sodium Chloride Flush Syringe 10 Ml) 10 ml IV BID AILEEN Sodium Chloride (Sodium Chloride Flush Syringe 10 Ml) 10 ml IV PRN PRN PRN Reason: LINE FLUSH Exam - Physical Exam Narrative exam: General Apperance: The patient sitting in bed no acute distress HEENT: Normocephalic, atraumatic. Pupils equally round and reactive to light, unable to do extraocular movement , and no sclericterus or JVD or thyromegaly or nodule. Neck supple, unable to examine oral cavity Heart: S1-S2, regular is rhythm Lungs: Clear to auscultation anteriorly bilaterally, breathing comfortable Abdomen: Positive bowel sounds, soft, nondistended, no organomegaly Extremities: scrotum large No edema cyanosis clubbing Skin: no rash, nodule, warm and dry Neuro: Sedated - Constitutional Vitals: Temp Pulse Resp BP Pulse Ox 99.6 F 89 14 152/95 99 09/06/18 00:37 09/06/18 00:37 09/06/18 00:37 09/06/18 00:37 09/06/18 00:37 Results - Labs CBC & Chem 7: 09/06/18 04:08 09/06/18 04:08 Labs: Abnormal lab results 09/05/18 09/05/18 09/05/18 Range/Units 18:43 18:43 18:43 Lymph # 0.9 L (1.2-5.4) K/mm3 Seg Neutrophils % 78.1 H (40.0-70.0) % PT 15.5 H (12.2-14.9) Sec. INR 1.16 H (0.87-1.13) Potassium 3.5 L (3.6-5.0) mmol/L Carbon Dioxide 17 L (22-30) mmol/L Glucose 194 H (75-100) mg/dL Total Protein 6.0 L (6.3-8.2) g/dL Albumin 3.5 L (3.9-5) g/dL - Imaging and Cardiology Chest x-ray: report reviewed CT Scan - head: report reviewed Assessment and Plan Testicular ultrasound reviewed Assessment Pneumonia, probably aspiration Acute on chronic seizure Large inguinal hernia Hypokalemia Hypertension Coronary artery disease History of CVA Plan Patient was admitted to medicine Start IV Zosyn, follow cultures Start Ativan as needed for seizures and consult neurology Consult surgery, replete potassium Start IV fluids and hydralazine for blood pressure control Start DVT prophylaxis
[2018-09-06] MEDS ORDERED: ZOSYN/NS 4.5GM/100ML 4.5 GM/100 ML VIAL IV ONE (03:38)
[2018-09-06] MEDS: ZOSYN/NS 4.5GM/100ML 4.5 GM/100 ML VIAL IV SCH ×3 (03:46→18:25)
[2018-09-06] MEDS: NACL 0.45% 1000 ML 1,000 ML IV SCH ×3 (05:17→22:49)
[2018-09-06] MEDS: KCL 10MEQ/100ML 10 MEQ/100 ML BAG IV SCH ×2 (05:23→06:41)
[2018-09-06 05:24] LABS: Basophils % (Auto) 0.3 % (0.0-1.8); Eosinophils % (Auto) 0.2 % (0.0-4.3); Hematocrit 38.1 % (35.5-45.6); Hemoglobin 12.3 gm/dl (11.8-15.2); Lymphocytes # (Auto) 1.2 K/mm3 (1.2-5.4); Lymphocytes % (Auto) 12.9 % (13.4-35.0); Mean Corpuscular HGB Conc 32 % (32-34); Mean Corpuscular Volume 92 fl (84-94); Platelet Count 172 K/mm3 (140-440); Red Blood Count 4.15 M/mm3 (3.65-5.03); Red Cell Distribution Width 15.8 % (13.2-15.2)
[2018-09-06 05:38] LABS: BUN/Creatinine Ratio 11; Blood Urea Nitrogen 12 mg/dL (9-20); Calcium 8.5 mg/dL (8.4-10.2); Hemolysis Index 94
--- NOTE | 2018-09-06 09:08 | Event Note ---
Date: 09/06/18 Stopped by for requested consult. Pt able to be awakened, but did not want to interact. Will come back at another time.
--- NOTE | 2018-09-06 09:42 | Event Note ---
Date: 09/06/18 Pt seen and examined. Admited today with Pneumonia, probably aspiration Acute on chronic seizure Large inguinal hernia Hypokalemia Hypertension Coronary artery disease History of CVA Continue with present Mx plan
[2018-09-06] MEDS: LOVENOX SUB-Q SCH (09:58)
[2018-09-06] MEDS: SODIUM CHLORIDE FLUSH SYRINGE 10 ML IV SCH ×2 (09:58→22:49)
[2018-09-06] MEDS ORDERED: LOVENOX SUB-Q SCH (10:00)
[2018-09-06] MEDS ORDERED: KEPPRA 2,000 MG in NACL 0.9% 100 ML IV SCH (11:30)
--- NOTE | 2018-09-06 15:36 | Consultation ---
History of Present Illness Consult date: 09/06/18 Reason for consult: hernia Requesting physician: AJAY AN Chief complaint: chronic LIH - History of present illness History of present illness: 63yo M was brought to the emergency room due to a seizure at home. We're being asked to see the patient for a chronic left inguinal hernia. Hernia has been present since 2017 which is quite large on the CT at that time. Patient is minimally interactive. He denies any abdominal pain. Past History Past Medical History: CAD, hypertension, seizures, stroke Past Surgical History: No surgical history Social history: other (unknown) Family history: other (unknown) Medications and Allergies Allergies Allergy/AdvReac Type Severity Reaction Status Date / Time No Known Allergies Allergy Unverified 06/19/13 17:40 Home Medications Medication Instructions Recorded Confirmed Last Taken Type Aspirin [Aspirin TAB] 325 mg PO QDAY 06/19/13 09/06/18 Unknown History Carvedilol [Coreg] 12.5 mg PO DAILY 06/19/13 09/06/18 Unknown History Clopidogrel [Plavix] 75 mg PO QDAY 06/19/13 09/06/18 Unknown History Famotidine [Pepcid] 20 mg PO BID 06/19/13 09/06/18 Unknown History Hydrochlorothiazide 12.5 mg PO DAILY 06/19/13 09/06/18 Unknown History Isosorbide Mononitrate [Imdur] 120 mg PO QDAY 06/19/13 09/06/18 Unknown History Lisinopril [Zestril TAB] 20 mg PO QDAY 06/19/13 09/06/18 Unknown History Simvastatin (Nf) [Zocor TAB] 20 mg PO QHS 06/19/13 09/06/18 Unknown History Spironolactone 25 mg PO DAILY 06/19/13 09/06/18 Unknown History Verapamil HCl [Calan Sr] 360 mg PO QDAY 06/19/13 09/06/18 Unknown History amLODIPine [Norvasc] 10 mg PO DAILY 06/19/13 09/06/18 Unknown History levETIRAcetam [Keppra TAB] 500 mg PO BID #60 tablet 03/28/18 09/06/18 Unknown Rx Active Meds: Active Medications Acetaminophen (Tylenol) 650 mg PO Q4H PRN PRN Reason: Pain MILD(1-3)/Fever >100.5/BENTLEY Enoxaparin Sodium (Lovenox) 40 mg SUB-Q QDAY@1000 AILEEN Last Admin: 09/06/18 09:58 Dose: 40 mg Documented by: Hydralazine HCl (Apresoline) 5 mg IV Q6H PRN PRN Reason: Hypertension Piperacillin Sod/Tazobactam Sod (Zosyn/Ns 4.5gm/100ml) 4.5 gm in 100 mls @ 200 mls/hr IV Q8H AILEEN; Protocol Last Admin: 09/06/18 09:57 Dose: 200 mls/hr Documented by: Sodium Chloride (Nacl 0.45% 1000 Ml) 1,000 mls @ 75 mls/hr IV DIRECT AILEEN Last Admin: 09/06/18 05:17 Dose: 75 mls/hr Documented by: Levetiracetam 2,000 mg/ Sodium (Chloride) 120 mls @ 400 mls/hr IV NOW AILEEN Levetiracetam (Keppra) 1,000 mg PO BID AILEEN Lorazepam (Ativan) 1 mg IV Q4H PRN PRN Reason: Seizures Ondansetron HCl (Zofran) 4 mg IV Q4H PRN PRN Reason: Nausea And Vomiting Sodium Chloride (Sodium Chloride Flush Syringe 10 Ml) 10 ml IV BID [facility] Last Admin: 09/06/18 09:58 Dose: 10 ml Documented by: Sodium Chloride (Sodium Chloride Flush Syringe 10 Ml) 10 ml IV PRN PRN PRN Reason: LINE FLUSH Review of Systems ROS unobtainable: due to mental status Exam Vital Signs Temp Pulse Resp BP Pulse Ox 97.7 F 92 H 17 110/77 100 09/05/18 18:15 09/05/18 18:15 09/05/18 18:15 09/05/18 18:15 09/05/18 18:15 - General physical appearance Positive: no distress, no pain, other (was able to open eyes and grunt to questions. ) - Respiratory Positive: normal expansion, normal respiratory effort, other (decreased breath sounds on right) - Cardiovascular Rhythm: regular - Abdomen Abdomen: Present: soft. Absent: tender, distended Hernia: inguinal (large on left. Reducible. Large direct hernia noted.) - Genitourinary Male Genitourinary: normal - Integumentary no rash, no growths, no abnormal pigmentation Results - Labs 09/06/18 04:08 09/06/18 04:08 Abnormal lab results 09/05/18 09/05/18 09/05/18 Range/Units 18:43 18:43 18:43 RDW (13.2-15.2) % Lymph % (Auto) (13.4-35.0) % [place] % (Auto) (0.0-7.3) % Lymph # 0.9 L (1.2-5.4) K/mm3 [place] # (0.0-0.8) K/mm3 Seg Neutrophils % 78.1 H (40.0-70.0) % PT 15.5 H (12.2-14.9) Sec. INR 1.16 H (0.87-1.13) Potassium 3.5 L (3.6-5.0) mmol/L Carbon Dioxide 17 L (22-30) mmol/L Glucose 194 H (75-100) mg/dL Total Protein 6.0 L (6.3-8.2) g/dL Albumin 3.5 L (3.9-5) g/dL 09/06/18 Range/Units 04:08 RDW 15.8 H (13.2-15.2) % Lymph % (Auto) 12.9 L (13.4-35.0) % [place] % (Auto) 10.0 H (0.0-7.3) % Lymph # (1.2-5.4) K/mm3 [place] # 1.0 H (0.0-0.8) K/mm3 Seg Neutrophils % 76.6 H (40.0-70.0) % PT (12.2-14.9) Sec. INR (0.87-1.13) Potassium (3.6-5.0) mmol/L Carbon Dioxide (22-30) mmol/L Glucose (75-100) mg/dL Total Protein (6.3-8.2) g/dL Albumin (3.9-5) g/dL Diabetes panel 09/05/18 09/06/18 Range/Units 18:43 04:08 Sodium 139 139 (137-145) mmol/L Potassium 3.5 L 4.2 (3.6-5.0) mmol/L Chloride 99.6 104.4 (98-107) mmol/L Carbon Dioxide 17 L 22 (22-30) mmol/L BUN 15 12 (9-20) mg/dL Creatinine 1.5 1.1 (0.8-1.5) mg/dL Glucose 194 H 93 (75-100) mg/dL Calcium 8.8 8.5 (8.4-10.2) mg/dL AST 19 (5-40) units/L ALT 15 (7-56) units/L Alkaline Phosphatase 99 (35-129) units/L Total Protein 6.0 L (6.3-8.2) g/dL Albumin 3.5 L (3.9-5) g/dL Calcium panel 09/05/18 09/06/18 Range/Units 18:43 04:08 Calcium 8.8 8.5 (8.4-10.2) mg/dL Albumin 3.5 L (3.9-5) g/dL Pituitary panel 09/05/18 09/06/18 Range/Units 18:43 04:08 Sodium 139 139 (137-145) mmol/L Potassium 3.5 L 4.2 (3.6-5.0) mmol/L Chloride 99.6 104.4 (98-107) mmol/L Carbon Dioxide 17 L 22 (22-30) mmol/L BUN 15 12 (9-20) mg/dL Creatinine 1.5 1.1 (0.8-1.5) mg/dL Glucose 194 H 93 (75-100) mg/dL Calcium 8.8 8.5 (8.4-10.2) mg/dL Adrenal panel 09/05/18 09/06/18 Range/Units 18:43 04:08 Sodium 139 139 (137-145) mmol/L Potassium 3.5 L 4.2 (3.6-5.0) mmol/L Chloride 99.6 104.4 (98-107) mmol/L Carbon Dioxide 17 L 22 (22-30) mmol/L BUN 15 12 (9-20) mg/dL Creatinine 1.5 1.1 (0.8-1.5) mg/dL Glucose 194 H 93 (75-100) mg/dL Calcium 8.8 8.5 (8.4-10.2) mg/dL Total Bilirubin 0.20 (0.1-1.2) mg/dL AST 19 (5-40) units/L ALT 15 (7-56) units/L Alkaline Phosphatase 99 (35-129) units/L Total Protein 6.0 L (6.3-8.2) g/dL Albumin 3.5 L (3.9-5) g/dL - Imaging CT scan - abdomen: report reviewed, image reviewed (from 2016) Assessment and Plan - Patient Problems (1) Left inguinal hernia Current Visit: No Status: Acute Plan to address problem: Pt is stable. Patient has a chronic left inguinal hernia. It is reducible. Once the patient is cleared by neurology and medicine and is able to be taken off Plavix, we can plan for an elective repair. We should be able to do this laparoscopically. He can be set up as an outpatient for surgery. Will be available as needed. Please call with any questions. Time=30min
[2018-09-06] MEDS: KEPPRA PO SCH (18:26)
--- NOTE | 2018-09-06 21:41 | Consultation ---
History of Present Illness Consult date: 09/06/18 Requesting physician: TERRI HALE Reason for Consult: seizure Chief complaint: seizure History of present illness: This 63-year-old right-handed -Tunisian is a poor historian but was a dmitted for seizure. He admits he sometimes forgets to take some medications but despite that is driving he says. He states he does not get a warning prior to his seizures but cannot tell me when the last one was prior to the one yesterday. He denies being incontinent of urine with his seizures. He states his seizures began at age 10 or 11. 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 denies: alcohol abuse, prescription drug abuse, IV drug use (denies alcohol and illicit drugs.) Family history: hypertension (unknown), stroke (thanks someone in the family has had strokes but cannot tell me who), other (maternal aunt had seizures) Medications and Allergies Allergies Allergy/AdvReac Type Severity Reaction Status Date / Time No Known Allergies Allergy Unverified 06/19/13 17:40 Home Medications Medication Instructions Recorded Confirmed Last Taken Type Aspirin [Aspirin TAB] 325 mg PO QDAY 06/19/13 09/06/18 Unknown History Carvedilol [Coreg] 12.5 mg PO DAILY 06/19/13 09/06/18 Unknown History Clopidogrel [Plavix] 75 mg PO QDAY 06/19/13 09/06/18 Unknown History Famotidine [Pepcid] 20 mg PO BID 06/19/13 09/06/18 Unknown History Hydrochlorothiazide 12.5 mg PO DAILY 06/19/13 09/06/18 Unknown History Isosorbide Mononitrate [Imdur] 120 mg PO QDAY 06/19/13 09/06/18 Unknown History Lisinopril [Zestril TAB] 20 mg PO QDAY 06/19/13 09/06/18 Unknown History Simvastatin (Nf) [Zocor TAB] 20 mg PO QHS 06/19/13 09/06/18 Unknown History Spironolactone 25 mg PO DAILY 06/19/13 09/06/18 Unknown History Verapamil HCl [Calan Sr] 360 mg PO QDAY 06/19/13 09/06/18 Unknown History amLODIPine [Norvasc] 10 mg PO DAILY 06/19/13 09/06/18 Unknown History levETIRAcetam [Keppra TAB] 500 mg PO BID #60 tablet 03/28/18 09/06/18 Unknown Rx Active Meds: Active Medications Acetaminophen (Tylenol) 650 mg PO Q4H PRN PRN Reason: Pain MILD(1-3)/Fever >100.5/[place] Enoxaparin Sodium (Lovenox) 40 mg SUB-Q QDAY@1000 REPLACED BY [facility] Last Admin: 09/06/18 09:58 Dose: 40 mg Documented by: Hydralazine HCl (Apresoline) 5 mg IV Q6H PRN PRN Reason: Hypertension Piperacillin Sod/Tazobactam Sod (Zosyn/Ns 4.5gm/100ml) 4.5 gm in 100 mls @ 200 mls/hr IV Q8H REPLACED BY [facility]; Protocol Last Admin: 09/06/18 18:25 Dose: 200 mls/hr Documented by: Sodium Chloride (Nacl 0.45% 1000 Ml) 1,000 mls @ 75 mls/hr IV DIRECT REPLACED BY [facility] Last Admin: 09/06/18 18:26 Dose: 75 mls/hr Documented by: Levetiracetam 2,000 mg/ Sodium (Chloride) 120 mls @ 400 mls/hr IV NOW REPLACED BY [facility] Last Admin: 09/06/18 16:41 Dose: 400 mls/hr Documented by: Levetiracetam (Keppra) 1,000 mg PO BID REPLACED BY [facility] Last Admin: 09/06/18 18:26 Dose: 1,000 mg Documented by: Lorazepam (Ativan) 1 mg IV Q4H PRN PRN Reason: Seizures Ondansetron HCl (Zofran) 4 mg IV Q4H PRN PRN Reason: Nausea And Vomiting Sodium Chloride (Sodium Chloride Flush Syringe 10 Ml) 10 ml IV BID REPLACED BY [facility] Last Admin: 09/06/18 09:58 Dose: 10 ml Documented by: Sodium Chloride (Sodium Chloride Flush Syringe 10 Ml) 10 ml IV PRN PRN PRN Reason: LINE FLUSH Review of Systems All systems: negative (no headaches or dizziness or snoring, sometimes naps, not sleepy driving, no memory problems and no paresthesias.) Physical Examination - Vital Signs Vital Signs: Vital Signs Temp Pulse Resp BP Pulse Ox 97.7 F 92 H 17 110/77 100 09/05/18 18:15 09/05/18 18:15 09/05/18 18:15 09/05/18 18:15 09/05/18 18:15 - Physical Exam Narrative exam: General Appearance: well developed well nourished appearing (but no height recorded and therefore cannot calculate BMI) mid 60s -Tunisian male in NAD. HEENT: atraumatic, normocephalic; no bruits, 2+ Rolanda without soreness or induration or enlargement, sclerae nonicteric. Oropharynx pink and moist but many missing teeth. Neck: supple, no bruits. Heart: no murmur or extra sounds. Extremities: no clubbing, cyanosis or edema. 2+ dorsalis pedis pulses bilaterally. Neurologic Exam: Mental Status: Awake, alert, oriented to season is winter but cannot give me month or day of the week, and cannot give year though he knows we are past 2009, speech is clear, names pen as a pencil and its point but seems to have some visual difficulty, but abstracts a little imprecisely stating that apples and oranges "go to market together" and "grow about the same time", cannot give President or Combatant Swimmer after first names and first letters of last names as prompts and actually guesses Popeye Magana when given the T for the current president, serial 7's cannot be done beyond the first subtraction and gives 5+7= 10, no right-left confusion, gets 0 of 3 objects at 3 minutes, spells WORLD backwards correctly. Cranial Nerves: bernal full, no papilledema, SVPs present, PERRLA, EOMs full without nystagmus or diplopia, facial sensation intact to pinprick and light touch, no facial weakness, Roche is midline, palate rises symmetrically to phonation, shoulder shrug is 5 X 2, tongue protrudes midline. Cerebellar: finger to nose and heel to chang are normal. Sensory: intact to light touch, pinprick, and vibrations. Double simultaneous stimulation is intact. Motor Exam Upper Extremities: no drift or pronation, Douglas intact. Equipment Service Engineer are 5 X 2, tone is normal. No atrophy or fasciculations are noted visually. Motor Exam Lower Extremities: mild left leg lag; iliopsoas, quadriceps and anterior tibials and gastrocnemius are 5 X 2. Douglas intact. Tone is normal. No atrophy or fasciculations are noted visually. Reflexes: Palmomental is positive on the right, snout and jaw jerk are negative. Triceps are trace right and 0 left becoming trace left with reinforcement, biceps and brachioradialis are trace bilaterally. Sumit's is negative bilaterally. Knee jerks are 1+ right and trace to 1 left and ankle jerks are 1+ right and trace to 1 left bilaterally without clonus. Toes are downgoing bilaterally to Babinski testing. Results - Laboratory Findings CBC and BMP: 09/06/18 04:08 09/06/18 04:08 Abnormal Lab Findings: Abnormal Labs 09/05/18 09/05/18 09/05/18 18:43 18:43 18:43 RDW Lymph % (Auto) [place] % (Auto) Lymph # 0.9 L [place] # Seg Neutrophils % 78.1 H PT 15.5 H INR 1.16 H Potassium 3.5 L Carbon Dioxide 17 L Glucose 194 H Total Protein 6.0 L Albumin 3.5 L 09/06/18 04:08 RDW 15.8 H Lymph % (Auto) 12.9 L [place] % (Auto) 10.0 H Lymph # [place] # 1.0 H Seg Neutrophils % 76.6 H PT INR Potassium Carbon Dioxide Glucose Total Protein Albumin Assessment and Plan Impression: 1. Complex partial epilepsy 2. Memory loss Plan: 1. I increased his Keppra since 500 mg twice a day is too low a dose. 2. Should follow-up with a neurologist to recheck his level in 2 weeks. 3. It should be emphasized that he cannot drive until he has no seizures for 6 months straight. This should be conveyed to his sister. She should be asked whether he is using a Mediset for his weekly supply and if not she should get one for him and probably supervise his medications anyway. 4. I ordered a noncontrast brain MRI. 55 minutes spent including discussion of need for larger dose of Keppra and need to not drive. Thank you for an interesting consultation on this unfortunate mid 60s man. Signing off, call for any unusual MRI findings. Memory difficulties may be postictal and can be addressed by an outpatient neurologist.
[2018-09-07] MEDS: APRESOLINE IV PRN ×2 (01:04→08:51)
[2018-09-07] MEDS: ZOSYN/NS 4.5GM/100ML 4.5 GM/100 ML VIAL IV SCH ×3 (01:08→17:42)
[2018-09-07 05:45] LABS: Basophils # (Auto) 0.1 K/mm3 (0.0-0.1); Basophils % (Auto) 0.6 % (0.0-1.8); Eosinophils # (Auto) 0.1 K/mm3 (0.0-0.4); Eosinophils % (Auto) 0.8 % (0.0-4.3); Hematocrit 40.2 % (35.5-45.6); Hemoglobin 13.1 gm/dl (11.8-15.2); Lymphocytes # (Auto) 1.8 K/mm3 (1.2-5.4); Lymphocytes % (Auto) 21.5 % (13.4-35.0); Mean Corpuscular HGB Conc 33 % (32-34); Mean Corpuscular Volume 90 fl (84-94); Monocytes # (Auto) 0.9 K/mm3 (0.0-0.8); Monocytes % (Auto) 10.6 % (0.0-7.3); Red Blood Count 4.47 M/mm3 (3.65-5.03); Red Cell Distribution Width 15.2 % (13.2-15.2)
[2018-09-07 06:05] LABS: Platelet Count 161 K/mm3 (140-440)
[2018-09-07 06:09] LABS: Alanine Aminotransferase 16 units/L (7-56); Albumin 3.3 g/dL (3.9-5); BUN/Creatinine Ratio 7; Blood Urea Nitrogen 10 mg/dL (9-20); Calcium 8.7 mg/dL (8.4-10.2); Hemolysis Index 19
--- NOTE | 2018-09-07 08:23 | XRay Report ---
FINAL REPORT EXAM: XR CHEST 1V AP HISTORY: ams TECHNIQUE: AP portable view of the chest PRIORS: CXR 06/27/2017 FINDINGS: Lines, tubes, and devices: N/A Lungs and pleura: Trachea is normal in position. There is early infiltrate in the right middle lobe a nd in the left lung base. Cardiomediastinal silhouette: Cardiac and mediastinal silhouettes are unremarkable. Calcification of the aorta is again noted. Other: Bony structures are intact. IMPRESSION: Early bilateral infiltrates in the right middle lobe and left lung base
--- NOTE | 2018-09-07 08:37 | Cat Scan Report ---
FINAL REPORT EXAM: CT HEAD/BRAIN WO CON HISTORY: AMS, seizure TECHNIQUE: Standard unenhanced CT of the head at 5.0 millimeter axial increments. PRIORS: CT head 03/28/2018 FINDINGS: There is a remote infarct encephalomalacia in the medial aspect of the left occipital lobe, unchanged . There is also focal encephalomalacia of the left lateral ventricular atria which is stable and due to the area of encephalomalacia. The ventricular system is otherwise normal in size and configuration. There is no evidence for parenc hymal volume loss. There is no evidence for mass lesion, mass effect, midline shift, acute intracranial hemorrhage, or a cute ischemia/ infarction. No evidence for acute skull fracture is seen. No abnormality in the overlying scalp soft tissues is seen. Visualized paranasal sinuses are clear. IMPRESSION: No acute intracranial process noted. No change. Remote infarct in the medial left occipital lobe.
[2018-09-07] MEDS: LOVENOX SUB-Q SCH (09:39)
[2018-09-07] MEDS: KEPPRA PO SCH ×2 (09:40→21:43)
[2018-09-07] MEDS: SODIUM CHLORIDE FLUSH SYRINGE 10 ML IV SCH ×2 (09:41→21:43)
[2018-09-07] MEDS ORDERED: PEPCID PO SCH (12:00)
[2018-09-07] MEDS ORDERED: ASPIRIN PO SCH ×2 (12:00)
[2018-09-07] MEDS ORDERED: ISOSORBIDE MONONITRATE 120 MG PO SCH (12:00)
[2018-09-07] MEDS ORDERED: HCTZ PO SCH (12:00)
[2018-09-07] MEDS: NORVASC PO SCH (13:38)
[2018-09-07] MEDS: PLAVIX PO SCH (13:38)
[2018-09-07] MEDS: PEPCID PO SCH ×2 (13:39→21:43)
[2018-09-07] MEDS: ZESTRIL PO SCH (13:39)
[2018-09-07] MEDS: COREG PO SCH (13:39)
[2018-09-07] MEDS: HCTZ PO SCH (13:39)
[2018-09-07] MEDS: ALDACTONE PO SCH (13:40)
[2018-09-07] MEDS: IMDUR PO SCH (13:40)
--- NOTE | 2018-09-07 15:06 | Progress Note ---
Assessment and Plan Assessment and plan: Pneumonia, probably aspiration -cont IV zosyn -blood cultures neg so far Acute on chronic seizure -cont keppra -MRI brain pending -neurology following Large inguinal hernia -for outpt surgery f/u Hypokalemia -resolved Hypertension -uncontrolled, home meds resumed Coronary artery disease -stable, home meds resumed History of CVA -stable, home meds resumed Disp: for possible d/c in 1-2 days if clinically stable History Interval history: Pt has no new complaints and no seizure reported overnight Hospitalist Physical - Constitutional Vitals: Temp Pulse Resp BP Pulse Ox 98.8 F 98 H 18 149/96 99 09/07/18 13:01 09/07/18 13:38 09/07/18 13:01 09/07/18 13:38 09/07/18 13:01 General appearance: Present: no acute distress - EENT Eyes: Present: PERRL, EOM intact ENT: hearing intact, clear oral mucosa - Neck Neck: Present: supple - Respiratory Respiratory effort: normal Respiratory: bilateral: CTA - Cardiovascular Rhythm: regular Heart Sounds: Present: S1 & S2 - Extremities Extremities: No edema - Abdominal General gastrointestinal: soft, non-tender, normal bowel sounds - Neurologic Neurologic: CNII-XII intact Results - Labs CBC & Chem 7: 09/07/18 05:13 09/07/18 05:13 Labs: Laboratory Last Values WBC 8.6 K/mm3 (4.5-11.0) 09/07/18 05:13 RBC 4.47 M/mm3 (3.65-5.03) 09/07/18 05:13 Hgb 13.1 gm/dl (11.8-15.2) 09/07/18 05:13 Hct 40.2 % (35.5-45.6) 09/07/18 05:13 MCV 90 fl (84-94) 09/07/18 05:13 MCH 29 pg (28-32) 09/07/18 05:13 MCHC 33 % (32-34) 09/07/18 05:13 RDW 15.2 % (13.2-15.2) 09/07/18 05:13 Plt Count 161 K/mm3 (140-440) 09/07/18 05:13 Lymph % (Auto) 21.5 % (13.4-35.0) 09/07/18 05:13 [place] % (Auto) 10.6 % (0.0-7.3) H 09/07/18 05:13 Eos % (Auto) 0.8 % (0.0-4.3) 09/07/18 05:13 Baso % (Auto) 0.6 % (0.0-1.8) 09/07/18 05:13 Lymph # 1.8 K/mm3 (1.2-5.4) 09/07/18 05:13 [place] # 0.9 K/mm3 (0.0-0.8) H 09/07/18 05:13 Eos # 0.1 K/mm3 (0.0-0.4) 09/07/18 05:13 Baso # 0.1 K/mm3 (0.0-0.1) 09/07/18 05:13 Seg Neutrophils % 66.5 % (40.0-70.0) 09/07/18 05:13 Seg Neutrophils # 5.7 K/mm3 (1.8-7.7) 09/07/18 05:13 PT 15.5 Sec. (12.2-14.9) H 09/05/18 18:43 INR 1.16 (0.87-1.13) H 09/05/18 18:43 APTT 25.7 Sec. (24.2-36.6) 09/05/18 18:43 Sodium 141 mmol/L (137-145) 09/07/18 05:13 Potassium 3.9 mmol/L (3.6-5.0) 09/07/18 05:13 Chloride 106.6 mmol/L (98-107) 09/07/18 05:13 Carbon Dioxide 22 mmol/L (22-30) 09/07/18 05:13 Anion Gap 16 mmol/L 09/07/18 05:13 BUN 10 mg/dL (9-20) 09/07/18 05:13 Creatinine 1.4 mg/dL (0.8-1.5) 09/07/18 05:13 Estimated GFR > 60 ml/min 09/07/18 05:13 BUN/Creatinine Ratio 7 % 09/07/18 05:13 Glucose 83 mg/dL (75-100) 09/07/18 05:13 Calcium 8.7 mg/dL (8.4-10.2) 09/07/18 05:13 Magnesium 2.00 mg/dL (1.7-2.3) 09/07/18 05:13 Total Bilirubin 0.50 mg/dL (0.1-1.2) 09/07/18 05:13 Direct Bilirubin < 0.2 mg/dL (0-0.2) 09/05/18 18:43 Indirect Bilirubin 0.0 mg/dL 09/05/18 18:43 AST 43 units/L (5-40) H 09/07/18 05:13 ALT 16 units/L (7-56) 09/07/18 05:13 Alkaline Phosphatase 93 units/L (35-129) 09/07/18 05:13 Troponin T < 0.010 ng/mL (0.00-0.029) 09/05/18 18:43 Total Protein 6.3 g/dL (6.3-8.2) 09/07/18 05:13 Albumin 3.3 g/dL (3.9-5) L 09/07/18 05:13 Albumin/Globulin Ratio 1.1 % 09/07/18 05:13 Urine Color Yellow (Yellow) 09/05/18 19:33 Urine Turbidity Clear (Clear) 09/05/18 19:33 Urine pH 5.0 (5.0-7.0) 09/05/18 19:33 Ur Specific [place] 1.013 (1.003-1.030) 09/05/18 19:33 Urine Protein 100 mg/dl mg/dL (Negative) 09/05/18 19:33 Urine Glucose (UA) Neg mg/dL (Negative) 09/05/18 19:33 Urine Ketones Neg mg/dL (Negative) 09/05/18 19:33 Urine Blood Neg (Negative) 09/05/18 19:33 Urine Nitrite Neg (Negative) 09/05/18 19:33 Urine Bilirubin Neg (Negative) 09/05/18 19:33 Urine Urobilinogen < 2.0 mg/dL (<2.0) 09/05/18 19:33 Ur Leukocyte Esterase Neg (Negative) 09/05/18 19:33 Urine WBC (Auto) 1.0 /HPF (0.0-6.0) 09/05/18 19:33 Urine RBC (Auto) 2.0 /HPF (0.0-6.0) 09/05/18 19:33 Urine Bacteria (Auto) 1+ /HPF (Negative) 09/05/18 19:33 Urine Mucus Few /HPF 09/05/18 19:33 Urine Opiates Screen Presumptive negative 09/05/18 19:33 Urine Methadone Screen Presumptive negative 09/05/18 19:33 Ur Barbiturates Screen Presumptive negative 09/05/18 19:33 Ur Phencyclidine Scrn Presumptive negative 09/05/18 19:33 Ur Amphetamines Screen Presumptive negative 09/05/18 19:33 U Benzodiazepines Scrn Presumptive negative 09/05/18 19:33 Urine Cocaine Screen Presumptive negative 09/05/18 19:33 U Marijuana (THC) Screen Presumptive negative 09/05/18 19:33 Drugs of Abuse Note Disclamer 09/05/18 19:33 Plasma/Serum Alcohol < 0.01 % (0-0.07) 09/05/18 18:43
[2018-09-07] MEDS: CALAN SR PO SCH (15:38)
[2018-09-07] MEDS: PRAVACHOL PO SCH (21:43)
[2018-09-07] MEDS ORDERED: NON-FORMULARY (Simvastatin (Nf) 20 MG) PO SCH (22:00)
[2018-09-08] MEDS: ZOSYN/NS 4.5GM/100ML 4.5 GM/100 ML VIAL IV SCH ×2 (01:06→10:57)
[2018-09-08] MEDS: IMDUR PO SCH (10:55)
[2018-09-08] MEDS: SODIUM CHLORIDE FLUSH SYRINGE 10 ML IV SCH (10:55)
[2018-09-08] MEDS: LOVENOX SUB-Q SCH (10:55)
[2018-09-08] MEDS: KEPPRA PO SCH ×2 (10:55→21:04)
[2018-09-08] MEDS: PLAVIX PO SCH (10:55)
[2018-09-08] MEDS: HCTZ PO SCH (10:56)
[2018-09-08] MEDS: HALFPRIN EC PO SCH (10:56)
[2018-09-08] MEDS: COREG PO SCH (10:56)
[2018-09-08] MEDS: PEPCID PO SCH ×2 (10:56→21:05)
[2018-09-08] MEDS: ALDACTONE PO SCH (13:30)
[2018-09-08] MEDS: ZESTRIL PO SCH (13:30)
--- NOTE | 2018-09-08 14:35 | Progress Note ---
Assessment and Plan Assessment and plan: Bilateral neumonia, probably aspiration -improved, will change antibiotic to oral -blood cultures neg so far H/O seizure disorder with breakthrough seizure -stable on keppra -MRI brain pending -neurology following Large inguinal hernia without incarceration -for outpt surgery f/u Hypokalemia -resolved Hypertension -controlled on meds Coronary artery disease -stable -cont home meds History of CVA -stable -cont home meds Disp: for d/c after the MRI brain is done History Interval history: Pt has no new complaints and no seizure reported overnight Hospitalist Physical - Constitutional Vitals: Temp Pulse Resp BP Pulse Ox 97.8 F 70 20 94/62 94 09/08/18 13:21 09/08/18 13:21 09/08/18 13:21 09/08/18 13:21 09/08/18 13:21 General appearance: Present: no acute distress - EENT Eyes: Present: PERRL, EOM intact ENT: hearing intact, clear oral mucosa - Neck Neck: Present: supple - Respiratory Respiratory effort: normal Respiratory: bilateral: CTA - Cardiovascular Rhythm: regular Heart Sounds: Present: S1 & S2 - Extremities Extremities: No edema - Abdominal General gastrointestinal: soft, non-tender, non-distended, normal bowel sounds - Neurologic Neurologic: other (awake and responsive) Results - Labs CBC & Chem 7: 09/07/18 05:13 09/07/18 05:13 Labs: Laboratory Last Values WBC 8.6 K/mm3 (4.5-11.0) 09/07/18 05:13 RBC 4.47 M/mm3 (3.65-5.03) 09/07/18 05:13 Hgb 13.1 gm/dl (11.8-15.2) 09/07/18 05:13 Hct 40.2 % (35.5-45.6) 09/07/18 05:13 MCV 90 fl (84-94) 09/07/18 05:13 MCH 29 pg (28-32) 09/07/18 05:13 MCHC 33 % (32-34) 09/07/18 05:13 RDW 15.2 % (13.2-15.2) 09/07/18 05:13 Plt Count 161 K/mm3 (140-440) 09/07/18 05:13 Lymph % (Auto) 21.5 % (13.4-35.0) 09/07/18 05:13 [place] % (Auto) 10.6 % (0.0-7.3) H 09/07/18 05:13 Eos % (Auto) 0.8 % (0.0-4.3) 09/07/18 05:13 Baso % (Auto) 0.6 % (0.0-1.8) 09/07/18 05:13 Lymph # 1.8 K/mm3 (1.2-5.4) 09/07/18 05:13 [place] # 0.9 K/mm3 (0.0-0.8) H 09/07/18 05:13 Eos # 0.1 K/mm3 (0.0-0.4) 09/07/18 05:13 Baso # 0.1 K/mm3 (0.0-0.1) 09/07/18 05:13 Seg Neutrophils % 66.5 % (40.0-70.0) 09/07/18 05:13 Seg Neutrophils # 5.7 K/mm3 (1.8-7.7) 09/07/18 05:13 PT 15.5 Sec. (12.2-14.9) H 09/05/18 18:43 INR 1.16 (0.87-1.13) H 09/05/18 18:43 APTT 25.7 Sec. (24.2-36.6) 09/05/18 18:43 Sodium 141 mmol/L (137-145) 09/07/18 05:13 Potassium 3.9 mmol/L (3.6-5.0) 09/07/18 05:13 Chloride 106.6 mmol/L (98-107) 09/07/18 05:13 Carbon Dioxide 22 mmol/L (22-30) 09/07/18 05:13 Anion Gap 16 mmol/L 09/07/18 05:13 BUN 10 mg/dL (9-20) 09/07/18 05:13 Creatinine 1.4 mg/dL (0.8-1.5) 09/07/18 05:13 Estimated GFR > 60 ml/min 09/07/18 05:13 BUN/Creatinine Ratio 7 % 09/07/18 05:13 Glucose 83 mg/dL (75-100) 09/07/18 05:13 Calcium 8.7 mg/dL (8.4-10.2) 09/07/18 05:13 Magnesium 2.00 mg/dL (1.7-2.3) 09/07/18 05:13 Total Bilirubin 0.50 mg/dL (0.1-1.2) 09/07/18 05:13 Direct Bilirubin < 0.2 mg/dL (0-0.2) 09/05/18 18:43 Indirect Bilirubin 0.0 mg/dL 09/05/18 18:43 AST 43 units/L (5-40) H 09/07/18 05:13 ALT 16 units/L (7-56) 09/07/18 05:13 Alkaline Phosphatase 93 units/L (35-129) 09/07/18 05:13 Troponin T < 0.010 ng/mL (0.00-0.029) 09/05/18 18:43 Total Protein 6.3 g/dL (6.3-8.2) 09/07/18 05:13 Albumin 3.3 g/dL (3.9-5) L 09/07/18 05:13 Albumin/Globulin Ratio 1.1 % 09/07/18 05:13 Urine Color Yellow (Yellow) 09/05/18 19:33 Urine Turbidity Clear (Clear) 09/05/18 19:33 Urine pH 5.0 (5.0-7.0) 09/05/18 19:33 Ur Specific [place] 1.013 (1.003-1.030) 09/05/18 19:33 Urine Protein 100 mg/dl mg/dL (Negative) 09/05/18 19:33 Urine Glucose (UA) Neg mg/dL (Negative) 09/05/18 19:33 Urine Ketones Neg mg/dL (Negative) 09/05/18 19:33 Urine Blood Neg (Negative) 09/05/18 19:33 Urine Nitrite Neg (Negative) 09/05/18 19:33 Urine Bilirubin Neg (Negative) 09/05/18 19:33 Urine Urobilinogen < 2.0 mg/dL (<2.0) 09/05/18 19:33 Ur Leukocyte Esterase Neg (Negative) 09/05/18 19:33 Urine WBC (Auto) 1.0 /HPF (0.0-6.0) 09/05/18 19:33 Urine RBC (Auto) 2.0 /HPF (0.0-6.0) 09/05/18 19:33 Urine Bacteria (Auto) 1+ /HPF (Negative) 09/05/18 19:33 Urine Mucus Few /HPF 09/05/18 19:33 Urine Opiates Screen Presumptive negative 09/05/18 19:33 Urine Methadone Screen Presumptive negative 09/05/18 19:33 Ur Barbiturates Screen Presumptive negative 09/05/18 19:33 Ur Phencyclidine Scrn Presumptive negative 09/05/18 19:33 Ur Amphetamines Screen Presumptive negative 09/05/18 19:33 U Benzodiazepines Scrn Presumptive negative 09/05/18 19:33 Urine Cocaine Screen Presumptive negative 09/05/18 19:33 U Marijuana (THC) Screen Presumptive negative 09/05/18 19:33 Drugs of Abuse Note Disclamer 09/05/18 19:33 Plasma/Serum Alcohol < 0.01 % (0-0.07) 09/05/18 18:43
[2018-09-08] MEDS: AUGMENTIN 875 MG PO SCH (21:04)
[2018-09-08] MEDS: PRAVACHOL PO SCH (21:05)
[2018-09-09] MEDS: SODIUM CHLORIDE FLUSH SYRINGE 10 ML IV SCH ×2 (00:13→12:29)
[2018-09-09 06:38] LABS: BUN/Creatinine Ratio 12; Blood Urea Nitrogen 16 mg/dL (9-20); Hemolysis Index 55
[2018-09-09] MEDS: AUGMENTIN 875 MG PO SCH ×2 (11:00→22:27)
[2018-09-09] MEDS: KEPPRA PO SCH ×2 (11:00→22:28)
[2018-09-09] MEDS: ZESTRIL PO SCH (11:00)
[2018-09-09] MEDS: LOVENOX SUB-Q SCH (11:00)
[2018-09-09] MEDS: ALDACTONE PO SCH (11:00)
[2018-09-09] MEDS: COREG PO SCH (11:00)
[2018-09-09] MEDS: HALFPRIN EC PO SCH (11:00)
[2018-09-09] MEDS: PLAVIX PO SCH (11:00)
[2018-09-09] MEDS: IMDUR PO SCH (11:00)
[2018-09-09] MEDS: PEPCID PO SCH ×2 (11:00→22:28)
[2018-09-09] MEDS: HCTZ PO SCH (11:00)
[2018-09-09] MEDS: CALAN SR PO SCH (13:52)
[2018-09-09] MEDS: NORVASC PO SCH (13:53)
--- NOTE | 2018-09-09 15:17 | Magnetic Resonance Report ---
MRI OF THE BRAIN WITHOUT CONTRAST: HISTORY: Seizure disorder PROCEDURE: Multiplanar, multisequence MR imaging of the brain without IV contrast was performed. FINDINGS: Compared to the CT head dated 09/05/18. Mild cortical volume loss and mild nonspecific chronic white matter changes are identified. Encephalomalacia is identified throughout the left CLINICAL LABORATORY TECHNOLOGIST distribution consistent with chronic ischemic infarct. No evidence for acute ischemia, hemorrhage or mass. No extra-axial fluid collection. The midline structures are central. The basal cisterns are patent. Normal ventricular size. The orbital cavities and sella turcica demonstrate no abnormality. The visualized paranasal sinuses and mastoid air cells are well aerated. Tiny mucus retention cysts in the inferior left maxillary sinus are noted. IMPRESSION: Mild volume loss and chronic white matter changes which are probably appropriate for this persons age. Chronic left CLINICAL LABORATORY TECHNOLOGIST infarct.
--- NOTE | 2018-09-09 15:35 | Progress Note ---
Assessment and Plan Assessment and plan: Bilateral neumonia, probably aspiration -improved, cont oral antibiotic -blood cultures neg so far H/O seizure disorder with breakthrough seizure -stable on keppra -MRI brain neg for acute findings except for old infarcts -neurology following Large inguinal hernia without incarceration -for outpt surgery f/u Hypokalemia -resolved Hypertension -controlled on meds Coronary artery disease -stable -cont home meds History of CVA -stable -cont home meds Disp: pt's sister who's the caregiver will be ready for him to come home tomorrow History Interval history: Pt has no new complaints and no seizure reported overnight Hospitalist Physical - Constitutional Vitals: Temp Pulse Resp BP Pulse Ox 98.2 F 86 20 130/86 97 09/09/18 14:39 09/09/18 14:39 09/09/18 14:39 09/09/18 14:39 09/09/18 14:39 General appearance: Present: no acute distress - EENT Eyes: Present: PERRL, EOM intact ENT: hearing intact, clear oral mucosa - Neck Neck: Present: supple, normal ROM - Respiratory Respiratory effort: normal Respiratory: bilateral: CTA - Cardiovascular Rhythm: regular Heart Sounds: Present: S1 & S2 - Extremities Extremities: No edema - Abdominal General gastrointestinal: soft, non-tender, non-distended, normal bowel sounds - Neurologic Neurologic: other (awake and responsive) Results - Labs CBC & Chem 7: 09/07/18 05:13 09/09/18 05:36 Labs: Laboratory Last Values WBC 8.6 K/mm3 (4.5-11.0) 09/07/18 05:13 RBC 4.47 M/mm3 (3.65-5.03) 09/07/18 05:13 Hgb 13.1 gm/dl (11.8-15.2) 09/07/18 05:13 Hct 40.2 % (35.5-45.6) 09/07/18 05:13 MCV 90 fl (84-94) 09/07/18 05:13 MCH 29 pg (28-32) 09/07/18 05:13 MCHC 33 % (32-34) 09/07/18 05:13 RDW 15.2 % (13.2-15.2) 09/07/18 05:13 Plt Count 161 K/mm3 (140-440) 09/07/18 05:13 Lymph % (Auto) 21.5 % (13.4-35.0) 09/07/18 05:13 [place] % (Auto) 10.6 % (0.0-7.3) H 09/07/18 05:13 Eos % (Auto) 0.8 % (0.0-4.3) 09/07/18 05:13 Baso % (Auto) 0.6 % (0.0-1.8) 09/07/18 05:13 Lymph # 1.8 K/mm3 (1.2-5.4) 09/07/18 05:13 [place] # 0.9 K/mm3 (0.0-0.8) H 09/07/18 05:13 Eos # 0.1 K/mm3 (0.0-0.4) 09/07/18 05:13 Baso # 0.1 K/mm3 (0.0-0.1) 09/07/18 05:13 Seg Neutrophils % 66.5 % (40.0-70.0) 09/07/18 05:13 Seg Neutrophils # 5.7 K/mm3 (1.8-7.7) 09/07/18 05:13 PT 15.5 Sec. (12.2-14.9) H 09/05/18 18:43 INR 1.16 (0.87-1.13) H 09/05/18 18:43 APTT 25.7 Sec. (24.2-36.6) 09/05/18 18:43 Sodium 138 mmol/L (137-145) 09/09/18 05:36 Potassium 4.3 mmol/L (3.6-5.0) 09/09/18 05:36 Chloride 102.7 mmol/L (98-107) 09/09/18 05:36 Carbon Dioxide 23 mmol/L (22-30) 09/09/18 05:36 Anion Gap 17 mmol/L 09/09/18 05:36 BUN 16 mg/dL (9-20) 09/09/18 05:36 Creatinine 1.3 mg/dL (0.8-1.5) 09/09/18 05:36 Estimated GFR > 60 ml/min 09/09/18 05:36 BUN/Creatinine Ratio 12 % 09/09/18 05:36 Glucose 88 mg/dL (75-100) 09/09/18 05:36 Calcium 9.0 mg/dL (8.4-10.2) 09/09/18 05:36 Magnesium 2.00 mg/dL (1.7-2.3) 09/07/18 05:13 Total Bilirubin 0.50 mg/dL (0.1-1.2) 09/07/18 05:13 Direct Bilirubin < 0.2 mg/dL (0-0.2) 09/05/18 18:43 Indirect Bilirubin 0.0 mg/dL 09/05/18 18:43 AST 43 units/L (5-40) H 09/07/18 05:13 ALT 16 units/L (7-56) 09/07/18 05:13 Alkaline Phosphatase 93 units/L (35-129) 09/07/18 05:13 Troponin T < 0.010 ng/mL (0.00-0.029) 09/05/18 18:43 Total Protein 6.3 g/dL (6.3-8.2) 09/07/18 05:13 Albumin 3.3 g/dL (3.9-5) L 09/07/18 05:13 Albumin/Globulin Ratio 1.1 % 09/07/18 05:13 Urine Color Yellow (Yellow) 09/05/18 19:33 Urine Turbidity Clear (Clear) 09/05/18 19:33 Urine pH 5.0 (5.0-7.0) 09/05/18 19:33 Ur Specific [place] 1.013 (1.003-1.030) 09/05/18 19:33 Urine Protein 100 mg/dl mg/dL (Negative) 09/05/18 19:33 Urine Glucose (UA) Neg mg/dL (Negative) 09/05/18 19:33 Urine Ketones Neg mg/dL (Negative) 09/05/18 19:33 Urine Blood Neg (Negative) 09/05/18 19:33 Urine Nitrite Neg (Negative) 09/05/18 19:33 Urine Bilirubin Neg (Negative) 09/05/18 19:33 Urine Urobilinogen < 2.0 mg/dL (<2.0) 09/05/18 19:33 Ur Leukocyte Esterase Neg (Negative) 09/05/18 19:33 Urine WBC (Auto) 1.0 /HPF (0.0-6.0) 09/05/18 19:33 Urine RBC (Auto) 2.0 /HPF (0.0-6.0) 09/05/18 19:33 Urine Bacteria (Auto) 1+ /HPF (Negative) 09/05/18 19:33 Urine Mucus Few /HPF 09/05/18 19:33 Urine Opiates Screen Presumptive negative 09/05/18 19:33 Urine Methadone Screen Presumptive negative 09/05/18 19:33 Ur Barbiturates Screen Presumptive negative 09/05/18 19:33 Ur Phencyclidine Scrn Presumptive negative 09/05/18 19:33 Ur Amphetamines Screen Presumptive negative 09/05/18 19:33 U Benzodiazepines Scrn Presumptive negative 09/05/18 19:33 Urine Cocaine Screen Presumptive negative 09/05/18 19:33 U Marijuana (THC) Screen Presumptive negative 09/05/18 19:33 Drugs of Abuse Note Disclamer 09/05/18 19:33 Plasma/Serum Alcohol < 0.01 % (0-0.07) 09/05/18 18:43
[2018-09-09] MEDS: PRAVACHOL PO SCH (22:28)
[2018-09-10] MEDS: HCTZ PO SCH (09:31)
[2018-09-10] MEDS: LOVENOX SUB-Q SCH (09:31)
[2018-09-10] MEDS: PLAVIX PO SCH (09:31)
[2018-09-10] MEDS: SODIUM CHLORIDE FLUSH SYRINGE 10 ML IV SCH ×3 (09:31→21:33)
[2018-09-10] MEDS: COREG PO SCH (09:32)
[2018-09-10] MEDS: AUGMENTIN 875 MG PO SCH ×2 (09:32→21:28)
[2018-09-10] MEDS: IMDUR PO SCH (09:32)
[2018-09-10] MEDS: ALDACTONE PO SCH (09:33)
[2018-09-10] MEDS: ZESTRIL PO SCH (09:34)
[2018-09-10] MEDS: KEPPRA PO SCH ×2 (09:34→21:28)
[2018-09-10] MEDS: HALFPRIN EC PO SCH (09:34)
[2018-09-10] MEDS: PEPCID PO SCH ×2 (09:34→21:28)
[2018-09-10] MEDS ORDERED: NORVASC PO SCH ×2 (14:00→14:46)
[2018-09-10] MEDS ORDERED: CALAN SR PO SCH (14:00)
[2018-09-10] MEDS ORDERED: IMDUR PO SCH (14:46)
--- NOTE | 2018-09-10 14:52 | Progress Note ---
Assessment and Plan Assessment and plan: Bilateral neumonia, probably aspiration -improved, cont oral antibiotic -blood cultures neg so far H/O seizure disorder with breakthrough seizure -stable on keppra -MRI brain neg for acute findings except for old infarcts Large inguinal hernia without incarceration -for outpt surgery f/u Hypokalemia -resolved H/O hypertension -pt's BP trended down this am after he received some of his home antihy pertensives -Antihypertensives adjusted Coronary artery disease -stable -cont home meds History of CVA -stable -cont home meds Disp: Because of the new hypotension, we will monitor patient for another 24 hours with medication adjustments before discharge in a.m. if clinically stable. History Interval history: Pt has no new complaints and no seizure reported overnight. However, after he received some of his home antihypertensives this morning, his systolic blood pressure trended down to the 80s Hospitalist Physical - Constitutional Vitals: Temp Pulse Resp BP Pulse Ox 97.5 F L 53 L 18 82/53 97 09/10/18 02:12 09/10/18 13:10 09/10/18 02:12 09/10/18 13:10 09/10/18 13:03 General appearance: Present: no acute distress - EENT Eyes: Present: PERRL, EOM intact ENT: hearing intact, clear oral mucosa - Neck Neck: Present: supple - Respiratory Respiratory effort: normal Respiratory: bilateral: CTA - Cardiovascular Rhythm: regular Heart Sounds: Present: S1 & S2 - Extremities Extremities: No edema - Abdominal General gastrointestinal: soft, non-tender, non-distended, normal bowel sounds - Neurologic Neurologic: CNII-XII intact Results - Labs CBC & Chem 7: 09/07/18 05:13 09/09/18 05:36 Labs: Laboratory Last Values WBC 8.6 K/mm3 (4.5-11.0) 09/07/18 05:13 RBC 4.47 M/mm3 (3.65-5.03) 09/07/18 05:13 Hgb 13.1 gm/dl (11.8-15.2) 09/07/18 05:13 Hct 40.2 % (35.5-45.6) 09/07/18 05:13 MCV 90 fl (84-94) 09/07/18 05:13 MCH 29 pg (28-32) 09/07/18 05:13 MCHC 33 % (32-34) 09/07/18 05:13 RDW 15.2 % (13.2-15.2) 09/07/18 05:13 Plt Count 161 K/mm3 (140-440) 09/07/18 05:13 Lymph % (Auto) 21.5 % (13.4-35.0) 09/07/18 05:13 [place] % (Auto) 10.6 % (0.0-7.3) H 09/07/18 05:13 Eos % (Auto) 0.8 % (0.0-4.3) 09/07/18 05:13 Baso % (Auto) 0.6 % (0.0-1.8) 09/07/18 05:13 Lymph # 1.8 K/mm3 (1.2-5.4) 09/07/18 05:13 [place] # 0.9 K/mm3 (0.0-0.8) H 09/07/18 05:13 Eos # 0.1 K/mm3 (0.0-0.4) 09/07/18 05:13 Baso # 0.1 K/mm3 (0.0-0.1) 09/07/18 05:13 Seg Neutrophils % 66.5 % (40.0-70.0) 09/07/18 05:13 Seg Neutrophils # 5.7 K/mm3 (1.8-7.7) 09/07/18 05:13 PT 15.5 Sec. (12.2-14.9) H 09/05/18 18:43 INR 1.16 (0.87-1.13) H 09/05/18 18:43 APTT 25.7 Sec. (24.2-36.6) 09/05/18 18:43 Sodium 138 mmol/L (137-145) 09/09/18 05:36 Potassium 4.3 mmol/L (3.6-5.0) 09/09/18 05:36 Chloride 102.7 mmol/L (98-107) 09/09/18 05:36 Carbon Dioxide 23 mmol/L (22-30) 09/09/18 05:36 Anion Gap 17 mmol/L 09/09/18 05:36 BUN 16 mg/dL (9-20) 09/09/18 05:36 Creatinine 1.3 mg/dL (0.8-1.5) 09/09/18 05:36 Estimated GFR > 60 ml/min 09/09/18 05:36 BUN/Creatinine Ratio 12 % 09/09/18 05:36 Glucose 88 mg/dL (75-100) 09/09/18 05:36 Calcium 9.0 mg/dL (8.4-10.2) 09/09/18 05:36 Magnesium 2.00 mg/dL (1.7-2.3) 09/07/18 05:13 Total Bilirubin 0.50 mg/dL (0.1-1.2) 09/07/18 05:13 Direct Bilirubin < 0.2 mg/dL (0-0.2) 09/05/18 18:43 Indirect Bilirubin 0.0 mg/dL 09/05/18 18:43 AST 43 units/L (5-40) H 09/07/18 05:13 ALT 16 units/L (7-56) 09/07/18 05:13 Alkaline Phosphatase 93 units/L (35-129) 09/07/18 05:13 Troponin T < 0.010 ng/mL (0.00-0.029) 09/05/18 18:43 Total Protein 6.3 g/dL (6.3-8.2) 09/07/18 05:13 Albumin 3.3 g/dL (3.9-5) L 09/07/18 05:13 Albumin/Globulin Ratio 1.1 % 09/07/18 05:13 Urine Color Yellow (Yellow) 09/05/18 19:33 Urine Turbidity Clear (Clear) 09/05/18 19:33 Urine pH 5.0 (5.0-7.0) 09/05/18 19:33 Ur Specific [place] 1.013 (1.003-1.030) 09/05/18 19:33 Urine Protein 100 mg/dl mg/dL (Negative) 09/05/18 19:33 Urine Glucose (UA) Neg mg/dL (Negative) 09/05/18 19:33 Urine Ketones Neg mg/dL (Negative) 09/05/18 19:33 Urine Blood Neg (Negative) 09/05/18 19:33 Urine Nitrite Neg (Negative) 09/05/18 19:33 Urine Bilirubin Neg (Negative) 09/05/18 19:33 Urine Urobilinogen < 2.0 mg/dL (<2.0) 09/05/18 19:33 Ur Leukocyte Esterase Neg (Negative) 09/05/18 19:33 Urine WBC (Auto) 1.0 /HPF (0.0-6.0) 09/05/18 19:33 Urine RBC (Auto) 2.0 /HPF (0.0-6.0) 09/05/18 19:33 Urine Bacteria (Auto) 1+ /HPF (Negative) 09/05/18 19:33 Urine Mucus Few /HPF 09/05/18 19:33 Urine Opiates Screen Presumptive negative 09/05/18 19:33 Urine Methadone Screen Presumptive negative 09/05/18 19:33 Ur Barbiturates Screen Presumptive negative 09/05/18 19:33 Ur Phencyclidine Scrn Presumptive negative 09/05/18 19:33 Ur Amphetamines Screen Presumptive negative 09/05/18 19:33 U Benzodiazepines Scrn Presumptive negative 09/05/18 19:33 Urine Cocaine Screen Presumptive negative 09/05/18 19:33 U Marijuana (THC) Screen Presumptive negative 09/05/18 19:33 Drugs of Abuse Note Disclamer 09/05/18 19:33 Plasma/Serum Alcohol < 0.01 % (0-0.07) 09/05/18 18:43
[2018-09-10] MEDS: HABITROL TD SCH (17:59)
[2018-09-10] MEDS: PRAVACHOL PO SCH (21:28)
[2018-09-11] MEDS: KEPPRA PO SCH (09:20)
[2018-09-11] MEDS: AUGMENTIN 875 MG PO SCH (09:20)
[2018-09-11] MEDS: PEPCID PO SCH (09:20)
[2018-09-11] MEDS: HABITROL TD SCH (09:20)
[2018-09-11] MEDS: PLAVIX PO SCH (09:21)
[2018-09-11] MEDS: ZESTRIL PO SCH (09:21)
[2018-09-11] MEDS: HALFPRIN EC PO SCH (09:21)
[2018-09-11] MEDS: COREG PO SCH (09:22)
[2018-09-11] MEDS: SODIUM CHLORIDE FLUSH SYRINGE 10 ML IV SCH (09:23)
[2018-09-11] MEDS: LOVENOX SUB-Q SCH (09:23)
[2018-09-11 15:06] VITALS: BP 119/79
--- NOTE | 2018-09-12 14:49 | Discharge Summary ---
Providers - Providers Date of Admission: 09/06/18 01:01 Date of discharge: 09/11/18 Attending physician: CHERYL PAUL 09/06/18 01:45 Consult to Physician [CONS] Routine Comment: SEBASTIAN Consulting Provider: JUANITO SANCHEZ Physician Instructions: WAS NOTIFIED. Reason For Exam: inguinal hernia 09/06/18 06:53 Consult to Physician [CONS] Routine Comment: SEBASTIAN Consulting Provider: MARICRUZ THAO Physician Instructions: DELIO WAS NOTIFIED. Reason For Exam: ana Primary care physician: LASHAE GUSTAFSON Hospitalization Reason for admission: Bilateral neumonia, probably aspiration Condition: Stable Pertinent studies: CXR: Bilateral infiltrate MRI brain: negative Procedures: None Hospital course: Final discharge diagnosis: Bilateral neumonia, probably aspiration H/O seizure disorder with breakthrough seizure Large inguinal hernia without incarceration Hypokalemia Hypertension Coronary artery disease History of CVA Hospital course: On admission, patient was placed on antiseizure agents as well as IV antibiotics after blood cultures were obtained. He also received potassium supplements for the hypokalemia with resolution. He was later evaluated by the neurologist who recommended further investigative testing with MRI brain. It later came back negative for acute findings except chronic infarcts. For the large inguinal hernia, surgery team recommended outpatient follow-up. Subsequently, the patient improved clinically, however it was noted that his blood pressure trended down with his multiple home anti-hypertensives. At that time, they had to be adjusted and he was monitored for 24 hours on the adjusted medications without any adverse events. Thereafter, he was deemed stable for discharge with clinic follow-Up. Of note, the blood cultures came back negative for any growth. He was discharged on oral antibiotic to complete a 10 day course. Disposition: DC-30 STILL A PATIENT Time spent for discharge: 38 minutes Core Measure Documentation - Palliative Care Palliative Care/ Comfort Measures: Not Applicable - Core Measures Any of the following diagnoses?: none Exam - Constitutional Vitals: Temp Pulse Resp BP Pulse Ox 97.9 F 67 18 119/79 99 09/11/18 13:18 09/11/18 13:18 09/11/18 13:18 09/11/18 13:18 09/11/18 13:18 General appearance: Present: no acute distress - EENT Eyes: Present: PERRL, EOM intact ENT: hearing intact, clear oral mucosa - Neck Neck: Present: supple, normal ROM - Respiratory Respiratory effort: normal Respiratory: bilateral: CTA - Cardiovascular Rhythm: regular Heart Sounds: Present: S1 & S2. Absent: rub, click - Extremities Extremities: No edema - Abdominal General gastrointestinal: Present: soft, non-tender, non-distended, normal bowel sounds - Integumentary Integumentary: Present: clear, warm, dry - Musculoskeletal Musculoskeletal: gait normal, strength equal bilaterally - Psychiatric Psychiatric: appropriate mood/affect, intact judgment & insight - Neurologic Neurologic: CNII-XII intact, moves all extremities Plan Follow up with: LASHAE GUSTAFSON MD [Primary Care Provider] - 3-5 Days Prescriptions: amLODIPine [Norvasc] 5 mg PO DAILY #30 tab Amoxicillin/K Clav Tab [Augmentin 875MG TAB] 1 each PO Q12HR #10 tablet ISOSORBIDE MONOnitrate [Imdur ER] 60 mg PO QDAY #30 tablet levETIRAcetam [Keppra TAB] 1,000 mg PO BID #120 tablet
== END 2018-09-11 15:15 | disposition home health service (06) | DRG 100 ==
LOC: ED 17:21 → 2B-ACE 09-06 01:01
PROVIDERS: ADMIT Internal Medicine; ATTEND Internal Medicine
DX: G40.209 Localization-related (focal) (partial) symptomatic epilepsy and epileptic syndromes with complex partial seizures, not intractable, without status epilepticus (principal); J69.0 Pneumonitis due to inhalation of food and vomit; I25.10 Atherosclerotic heart disease of native coronary artery without angina pectoris; I10 Essential (primary) hypertension; E87.6 Hypokalemia; K40.90 Unilateral inguinal hernia, without obstruction or gangrene, not specified as recurrent; F17.200 Nicotine dependence, unspecified, uncomplicated; R41.3 Other amnesia; Z86.73 Personal history of transient ischemic attack (TIA), and cerebral infarction without residual deficits; Z82.49 Family history of ischemic heart disease and other diseases of the circulatory system; Z82.3 Family history of stroke; Z79.82 Long term (current) use of aspirin; Z79.899 Other long term (current) drug therapy
CPT/HCPCS: 36415; 70450; 70551; 71045; 80048; 80053; 80076; 80307; 80320; 81001; 83735; 84484; 85025; 85610; 85730; 87040; 93005; 93010; 93975; 96372; 99406; G0378; A9270-GY; G0480; J0360; J1650; J1953; J1956; J2543; J3480; J7030